=== PATIENT | male | born 1935 | race Caucasian/White ===

== ENCOUNTER 2017-09-01 09:24 | Day surgery (SDC) | payer OTHER ==
[~2017-09-01] VITALS: Ht 170.2 cm; Wt 79.5 kg
[~2017-09-01 09:24] MED LIST: ALL100T PO; ALLO100T PO; ASPI-498 OR; ASPI81TA27 PO; ATE50T PO; BENA10TA9 PO; BUS10T PO; BUSP10TA90 PO; CALC-386 PO; CHOL200021 PO; EZET10TA38 PO; MEMA28CA OR; MEMA28CA PO; METO25TA62 PO; MULT-777 OR; POT20T PO; POTA20TA53 PO; RISETAB3 PO; TAMS0.4C36 PO
[2017-09-01] MEDS ORDERED: IOHEXOL 350 MG/ML 100ML IJ ONE ×2 (11:34→11:46)
[2017-09-01] MEDS ORDERED: LIDOCAINE HCL 2 %PF INJ 10ML AMP IJ ONE (11:35)
[2017-09-01] MEDS ORDERED: ANGIOMAX 250 MG VIAL IV ONE (11:44)
[2017-09-01] MEDS ORDERED: fentaNYL CITRATE 100 MCG/2 ML VL ONE (11:44)
[2017-09-01] MEDS ORDERED: MIDAZOLAM HCL 1MG/1ML-2 ML VIAL ONE (11:45)
== END 2017-09-01 14:15 | disposition home or self-care (01) ==
LOC: CATH 09:24 → MERGE 09:24 → CATH 14:15
PROVIDERS: ATTEND Internal Medicine
DX: I25.10 Atherosclerotic heart disease of native coronary artery without angina pectoris (principal); R94.39 Abnormal result of other cardiovascular function study; E66.9 Obesity, unspecified; R97.20 Elevated prostate specific antigen [PSA]; I10 Essential (primary) hypertension; E78.5 Hyperlipidemia, unspecified; M81.0 Age-related osteoporosis without current pathological fracture; F03.90 Unspecified dementia, unspecified severity, without behavioral disturbance, psychotic disturbance, mood disturbance, and anxiety; M10.9 Gout, unspecified
CPT/HCPCS: 93458; C1760; C1894; J1644; J2250; J3010; J7030; Q9967; 99152

== ENCOUNTER → 2017-09-10 | Outpatient (CLI) | payer OTHER | END | disposition home or self-care (01) | LOC: XYW 10:06 | PROVIDERS: ATTEND Internal Medicine | DX: I72.9 Aneurysm of unspecified site (principal); I10 Essential (primary) hypertension; E11.9 Type 2 diabetes mellitus without complications; E78.00 Pure hypercholesterolemia, unspecified; E78.5 Hyperlipidemia, unspecified | CPT/HCPCS: 93926 ==

== ENCOUNTER → 2017-11-09 | Outpatient (CLI) | payer OTHER ==
[2017-11-09 08:13] LABS: Basophils # (auto) 0 uL; Basophils % (auto) 0.3 % (0.0-2.0); Eosinophils # (auto) 0.1 uL; Eosinophils % (auto) 1.6 % (0.0-7.0); Hematocrit 43.3 % (41.0-53.0); Hemoglobin 14.7 g/dL (13.5-17.5); Lymphocytes # (auto) 1.5 uL; Mean Corpuscular Hemoglobin 32.6 pg (28.0-32.0); Mean Corpuscular Volume 95.9 fL (80.0-100.0); Monocytes # (auto) 0.6 uL; Monocytes % (auto) 10.3 % (0.0-12.0); Neutrophils # (auto) 3.4 uL; Neutrophils % (auto) 60.8 % (37.0-80.0); Platelet Count (auto) 165 10^3/uL (140-450); Red Blood Cells 4.51 10^6/uL (4.5-5.90); Red Cell Distribution Width 14.2 % (11.8-14.3); White Blood Cell 5.6 10^3/uL (4.4-10.8)
[2017-11-09 09:22] LABS: Albumin 3.5 g/dL (3.4-5.0); BUN/Creatinine Ratio 16.3; Bilirubin, Total 0.6 mg/dL (0.2-1.0); Calcium 8.8 mg/dL (8.5-10.1); Potassium 3.7 mmol/L (3.5-5.1); Total Protein 6.1 g/dL (6.4-8.2)
== END | disposition home or self-care (01) ==
LOC: LAB 07:37
PROVIDERS: ATTEND Physician Assistant
DX: I10 Essential (primary) hypertension (principal); N40.1 Benign prostatic hyperplasia with lower urinary tract symptoms; E78.5 Hyperlipidemia, unspecified; I49.3 Ventricular premature depolarization; R53.83 Other fatigue; R97.20 Elevated prostate specific antigen [PSA]
CPT/HCPCS: 36415; 80053; 80061; 84153; 84154; 85025

== ENCOUNTER → 2018-04-29 | Outpatient (CLI) | payer OTHER ==
[~2018-04-29] MED LIST changes: -ALLO100T PO; -ASPI81TA27 PO; -ATE50T PO; -BUSP10TA90 PO; +CALC1TAB64 PO; -MEMA28CA PO; +MULT-775 OR; -POTA20TA53 PO; -RISETAB3 PO
[2018-04-30 07:05] LABS: RPR Non Reactive (Non Reactive)
== END | disposition home or self-care (01) ==
LOC: LAB 09:35
PROVIDERS: ATTEND Psychiatry & Neurology Neurology
DX: G30.0 Alzheimer's disease with early onset (principal); E11.9 Type 2 diabetes mellitus without complications
CPT/HCPCS: 36415; 82607; 83036; 84425; 84443; 86592

== ENCOUNTER → 2018-12-09 | Outpatient (CLI) | payer OTHER ==
[~2018-12-09] MED LIST changes: +EZET10TA24 PO; -EZET10TA38 PO
== END | disposition home or self-care (01) ==
LOC: LAB 07:50
PROVIDERS: ATTEND Urology
DX: R97.20 Elevated prostate specific antigen [PSA] (principal)
CPT/HCPCS: 84153; 84154

== ENCOUNTER → 2018-12-27 | Outpatient (CLI) | payer OTHER ==
[2018-12-27 09:16] LABS: Basophils # (auto) 0 uL; Basophils % (auto) 0.7 % (0.0-2.0); Eosinophils # (auto) 0.1 uL; Eosinophils % (auto) 1.7 % (0.0-7.0); Hematocrit 42.8 % (41.0-53.0); Hemoglobin 14.4 g/dL (13.5-17.5); Lymphocytes # (auto) 1.3 uL; Lymphocytes % (auto) 26.2 % (10.0-50.0); Mean Corpuscular Hemoglobin 32.6 pg (28.0-32.0); Mean Corpuscular Hgb Conc. 33.7 g/dL (32.0-36.0); Mean Corpuscular Volume 96.6 fL (80.0-100.0); Monocytes # (auto) 0.6 uL; Monocytes % (auto) 12.4 % (0.0-12.0); Platelet Count (auto) 143 10^3/uL (140-450); Red Blood Cells 4.43 10^6/uL (4.5-5.90); Red Cell Distribution Width 14.6 % (11.8-14.3); White Blood Cell 5.1 10^3/uL (4.4-10.8)
[2018-12-27 09:52] LABS: Potassium 3.7 mmol/L (3.5-5.1)
[2018-12-27 10:00] LABS: Albumin 3.4 g/dL (3.4-5.0); BUN/Creatinine Ratio 18.3; Bilirubin, Total 0.6 mg/dL (0.2-1.0); Calcium 8.8 mg/dL (8.5-10.1); Total Protein 6.1 g/dL (6.4-8.2)
== END | disposition home or self-care (01) ==
LOC: LAB 07:49
PROVIDERS: ATTEND Physician Assistant
DX: E78.5 Hyperlipidemia, unspecified (principal); N40.1 Benign prostatic hyperplasia with lower urinary tract symptoms; G30.1 Alzheimer's disease with late onset; I10 Essential (primary) hypertension
CPT/HCPCS: 36415; 80053; 80061; 85025

== ENCOUNTER → 2020-01-16 | Outpatient (CLI) | payer OTHER ==
[~2020-01-16] MED LIST changes: -METO25TA62 PO; +METO25TA93 PO
[2020-01-16 08:02] LABS: Basophils # (auto) 0 10 ^3/uL (0-0.2); Basophils % (auto) 0.4 % (0.0-2.0); Eosinophils # (auto) 0.1 10 ^3/uL (0-0.8); Eosinophils % (auto) 1.5 % (0.0-7.0); Hematocrit 42.1 % (41.0-53.0); Hemoglobin 13.9 g/dL (13.5-17.5); Lymphocytes # (auto) 1.5 10 ^3/uL (0.4-5.4); Lymphocytes % (auto) 29.4 % (10.0-50.0); Mean Corpuscular Hgb Conc. 32.9 g/dL (32.0-36.0); Mean Corpuscular Volume 97.3 fL (80.0-100.0); Monocytes # (auto) 0.5 10 ^3/uL (0-1.3); Neutrophils % (auto) 58.7 % (37.0-80.0); Platelet Count (auto) 152 10^3/uL (140-450); Red Blood Cells 4.33 10^6/uL (4.5-5.90); Red Cell Distribution Width 14.2 % (11.8-14.3); White Blood Cell 5.1 10^3/uL (4.4-10.8)
[2020-01-16 08:31] LABS: Albumin 3.3 g/dL (3.4-5.0); Potassium 3.8 mmol/L (3.5-5.1)
[2020-01-16 08:44] LABS: BUN/Creatinine Ratio 20.7; Bilirubin, Total 0.6 mg/dL (0.2-1.0); Calcium 8.5 mg/dL (8.5-10.1); Total Protein 5.9 g/dL (6.4-8.2)
== END | disposition home or self-care (01) ==
LOC: LAB 07:34
PROVIDERS: ATTEND Physician Assistant
DX: I10 Essential (primary) hypertension (principal); H81.10 Benign paroxysmal vertigo, unspecified ear; F02.80 Dementia in other diseases classified elsewhere, unspecified severity, without behavioral disturbance, psychotic disturbance, mood disturbance, and anxiety; R73.09 Other abnormal glucose; R97.20 Elevated prostate specific antigen [PSA]
CPT/HCPCS: 36415; 80053; 80061; 84153; 84154; 85025

== ENCOUNTER → 2020-12-19 | Outpatient (CLI) | payer OTHER | END | disposition home or self-care (01) | LOC: LAB 07:52 | PROVIDERS: ATTEND Urology | DX: R97.20 Elevated prostate specific antigen [PSA] (principal) | CPT/HCPCS: 84153; 84154 ==

== ENCOUNTER 2021-10-23 06:28 | Day surgery (SDC) | payer OTHER ==
[2021-10-21 11:51] LABS: Basophils # (auto) 0 10 ^3/uL (0-0.2); Basophils % (auto) 0.5 % (0.0-2.0); Eosinophils # (auto) 0.1 10 ^3/uL (0-0.8); Eosinophils % (auto) 0.9 % (0.0-7.0); Hematocrit 41.5 % (41.0-53.0); Hemoglobin 14.4 g/dL (13.5-17.5); Lymphocytes # (auto) 1.5 10 ^3/uL (0.4-5.4); Lymphocytes % (auto) 26.2 % (10.0-50.0); Mean Corpuscular Hemoglobin 33.1 pg (28.0-32.0); Mean Corpuscular Hgb Conc. 34.8 g/dL (32.0-36.0); Mean Corpuscular Volume 95.1 fL (80.0-100.0); Monocytes # (auto) 0.5 10 ^3/uL (0-1.3); Monocytes % (auto) 9.1 % (0.0-12.0); Neutrophils # (auto) 3.7 10 ^3/uL (1.6-8.6); Neutrophils % (auto) 63.3 % (37.0-80.0); Red Blood Cells 4.36 10^6/uL (4.5-5.90); Red Cell Distribution Width 14.1 % (11.8-14.3); White Blood Cell 5.9 10^3/uL (4.4-10.8)
[2021-10-21 11:57] LABS: Urine Bacteria NONE SEEN /hpf (None Seen); Urine Blood Negative /uL (Negative); Urine Specific Gravity 1.008 (1.001-1.035); Urine WBC <1 /hpf (0 - 3)
[2021-10-21 12:10] LABS: INR 1.05 (0.9-1.15); Partial Thromboplastin Time 27.4 sec (23.6-33.0)
[2021-10-21 12:35] LABS: Albumin 3.5 g/dL (3.4-5.0); Calcium 8.9 mg/dL (8.5-10.1); Potassium 4.3 mmol/L (3.5-5.1)
[2021-10-21 12:39] LABS: BUN/Creatinine Ratio 14.3; Bilirubin, Total 0.5 mg/dL (0.2-1.0); Total Protein 6.4 g/dL (6.4-8.2)
[~2021-10-23] VITALS: Ht 170.2 cm; Wt 74.8 kg
[~2021-10-23 06:28] MED LIST changes: +ALEN70TA74 PO; +BENA10TA15 PO; -BENA10TA9 PO; +BIMA0.01 OP; +CARB0.5D8 OP; +CICL8KIT4 EX; +LACT12LO26 EX
[2021-10-23] MEDS ORDERED: CIPROFLOXACIN 400MG/200ML 200 ML IV ONE (06:44)
[2021-10-23] MEDS ORDERED: GENTAMICIN SULF 80 MG/2 ML VIAL ONE (07:40)
[2021-10-23] MEDS ORDERED: FLEET ENEMA(ADULT) 135 ML PR ONE (08:00)
[2021-10-23] MEDS ORDERED: MIDAZOLAM HCL 2MG/2ML 2ml VIAL (1mg/ml) ONE (10:00)
[2021-10-23] MEDS ORDERED: fentaNYL CITRATE 0 ML ONE (10:00)
[2021-10-23] MEDS ORDERED: fentaNYL CITRATE 100 MCG/2 ML VL ONE (10:01)
[2021-10-23] MEDS ORDERED: ONDANSETRON HCL 4 MG/2 ML VIAL IV PRN (10:15)
[2021-10-23] MEDS ORDERED: PROPOFOL 10 MG/ML 20 ML IV ONE (10:42)
[2021-10-23 11:30] VITALS: BP 165/75
== END 2021-10-23 11:30 | disposition home or self-care (01) ==
LOC: SUR 06:28
PROVIDERS: ATTEND Urology
DX: R97.20 Elevated prostate specific antigen [PSA] (principal); N42.32 Atypical small acinar proliferation of prostate; I10 Essential (primary) hypertension; M10.9 Gout, unspecified; F03.90 Unspecified dementia, unspecified severity, without behavioral disturbance, psychotic disturbance, mood disturbance, and anxiety; E78.5 Hyperlipidemia, unspecified; Z98.890 Other specified postprocedural states; Z79.899 Other long term (current) drug therapy; Z90.89 Acquired absence of other organs; Z20.822 Contact with and (suspected) exposure to COVID-19
CPT/HCPCS: 36415; 55700; 76872; 80053; 81001; 85025; 85610; 85730; 88305; 88342; J0744; J1580; J2250; J2704; J3010; J7030; U0003

== ENCOUNTER 2021-10-26 08:23 | Emergency (ER) | payer OTHER ==
[~2021-10-26] VITALS: Ht 167.6 cm; Wt 73.5 kg
[2021-10-26 10:28] LABS: Urine Bacteria FEW /hpf (None Seen); Urine Blood 3+ /uL (Negative); Urine Specific Gravity 1.007 (1.001-1.035); Urine WBC 6 /hpf (0 - 3)
[2021-10-26 10:52] LABS: Basophils # (auto) 0 10 ^3/uL (0-0.2); Basophils % (auto) 0.4 % (0.0-2.0); Eosinophils # (auto) 0 10 ^3/uL (0-0.8); Eosinophils % (auto) 0.4 % (0.0-7.0); Hematocrit 41.2 % (41.0-53.0); Hemoglobin 14.1 g/dL (13.5-17.5); Lymphocytes # (auto) 1.3 10 ^3/uL (0.4-5.4); Lymphocytes % (auto) 23.7 % (10.0-50.0); Mean Corpuscular Hemoglobin 32.8 pg (28.0-32.0); Mean Corpuscular Hgb Conc. 34.2 g/dL (32.0-36.0); Mean Corpuscular Volume 95.9 fL (80.0-100.0); Monocytes # (auto) 0.4 10 ^3/uL (0-1.3); Monocytes % (auto) 7.9 % (0.0-12.0); Neutrophils # (auto) 3.7 10 ^3/uL (1.6-8.6); Neutrophils % (auto) 67.6 % (37.0-80.0); Red Cell Distribution Width 14.2 % (11.8-14.3); White Blood Cell 5.5 10^3/uL (4.4-10.8)
[2021-10-26] MEDS ORDERED: SULF400T11 PO (13:40)
[2021-10-26 13:53] VITALS: BP 187/97
== END 2021-10-26 13:55 | disposition home or self-care (01) ==
LOC: ER 08:23
DX: N39.0 Urinary tract infection, site not specified (principal); I10 Essential (primary) hypertension
CPT/HCPCS: 36415; 81001; 85025

== ENCOUNTER 2022-02-27 09:37 | Emergency (ER) | payer OTHER ==
[~2022-02-27 09:37] MED LIST changes: +SULF400T11 PO
[2022-02-27 11:04] LABS: Basophils # (auto) 0 10 ^3/uL (0-0.2); Basophils % (auto) 0.5 % (0.0-2.0); Eosinophils # (auto) 0 10 ^3/uL (0-0.8); Eosinophils % (auto) 0.2 % (0.0-7.0); Hematocrit 43.8 % (41.0-53.0); Hemoglobin 14.4 g/dL (13.5-17.5); Lymphocytes # (auto) 1.1 10 ^3/uL (0.4-5.4); Lymphocytes % (auto) 11.9 % (10.0-50.0); Mean Corpuscular Hemoglobin 31.7 pg (28.0-32.0); Mean Corpuscular Volume 96.1 fL (80.0-100.0); Monocytes # (auto) 0.6 10 ^3/uL (0-1.3); Monocytes % (auto) 6.3 % (0.0-12.0); Neutrophils # (auto) 7.6 10 ^3/uL (1.6-8.6); Neutrophils % (auto) 81.1 % (37.0-80.0); Nucleated Red Blood Cells % 0.1 %; Red Blood Cells 4.55 10^6/uL (4.5-5.90); Red Cell Distribution Width 13.9 % (11.8-14.3); White Blood Cell 9.4 10^3/uL (4.4-10.8)
[2022-02-27 11:20] LABS: Albumin 3.8 g/dL (3.4-5.0); Calcium 9.1 mg/dL (8.5-10.1); Potassium 4.6 mmol/L (3.5-5.1)
[2022-02-27 11:23] LABS: BUN/Creatinine Ratio 15.9; Bilirubin, Total 0.9 mg/dL (0.2-1.0); Total Protein 6.4 g/dL (6.4-8.2)
[2022-02-27] MEDS ORDERED: FLUORESCEIN SOD OPTH TEST STRIP RIGHTEYE ONE (15:45)
[2022-02-27] MEDS ORDERED: TETRACAINE HCL 0.5% OPTH(EYE) SOLN 4ML RIGHTEYE ONE (15:45)
[2022-02-27] MEDS ORDERED: CIP03OS RIGHTEYE (19:28)
[2022-02-27 19:45] VITALS: BP 130/83
== END 2022-02-27 19:19 | disposition home or self-care (01) ==
LOC: ER 09:37
DX: S05.01XA Injury of conjunctiva and corneal abrasion without foreign body, right eye, initial encounter (principal); S00.83XA Contusion of other part of head, initial encounter; H11.31 Conjunctival hemorrhage, right eye; I10 Essential (primary) hypertension; Z79.82 Long term (current) use of aspirin; Z79.899 Other long term (current) drug therapy; W19.XXXA Unspecified fall, initial encounter; Y93.89 Activity, other specified; Y92.89 Other specified places as the place of occurrence of the external cause; Y99.8 Other external cause status
CPT/HCPCS: 36415; 70450; 70486; 72125; 73030; 80053; 84484; 85025; 93005

== ENCOUNTER → 2022-04-28 | Outpatient (CLI) | payer OTHER ==
[~2022-04-28] MED LIST changes: +CIP03OS RIGHTEYE
== END | disposition home or self-care (01) ==
LOC: LAB 09:11
PROVIDERS: ATTEND Urology
DX: R97.20 Elevated prostate specific antigen [PSA] (principal); N40.1 Benign prostatic hyperplasia with lower urinary tract symptoms
CPT/HCPCS: 84153

== ENCOUNTER → 2022-05-21 | Outpatient (CLI) | payer OTHER ==
[2022-05-21 08:08] LABS: Basophils # (auto) 0 10 ^3/uL (0-0.2); Basophils % (auto) 0.6 % (0.0-2.0); Eosinophils # (auto) 0.1 10 ^3/uL (0-0.8); Eosinophils % (auto) 2.4 % (0.0-7.0); Hematocrit 40.6 % (41.0-53.0); Hemoglobin 13.8 g/dL (13.5-17.5); Lymphocytes # (auto) 1.5 10 ^3/uL (0.4-5.4); Lymphocytes % (auto) 26.7 % (10.0-50.0); Mean Corpuscular Hemoglobin 32.3 pg (28.0-32.0); Mean Corpuscular Volume 95.1 fL (80.0-100.0); Monocytes # (auto) 0.5 10 ^3/uL (0-1.3); Monocytes % (auto) 9.3 % (0.0-12.0); Neutrophils # (auto) 3.5 10 ^3/uL (1.6-8.6); Nucleated Red Blood Cells % 0.2 %; Red Blood Cells 4.27 10^6/uL (4.5-5.90); Red Cell Distribution Width 14.4 % (11.8-14.3); White Blood Cell 5.7 10^3/uL (4.4-10.8)
[2022-05-21 08:49] LABS: Albumin 3.4 g/dL (3.4-5.0); BUN/Creatinine Ratio 18.8; Calcium 8.9 mg/dL (8.5-10.1)
[2022-05-21 08:54] LABS: Bilirubin, Total 0.4 mg/dL (0.2-1.0)
[2022-05-21 09:18] LABS: Free T4 (Free Thyroxine) 0.97 ng/dL (0.89-1.76)
[2022-05-21 09:19] LABS: Prostate Specific Antigen 12.21 ng/mL (0.0-4.0)
== END | disposition home or self-care (01) ==
LOC: LAB 07:48
PROVIDERS: ATTEND Nurse Practitioner Family
DX: I10 Essential (primary) hypertension (principal); R97.20 Elevated prostate specific antigen [PSA]; R73.03 Prediabetes; Z00.00 Encounter for general adult medical examination without abnormal findings
CPT/HCPCS: 36415; 80053; 80061; 82043; 83036; 84153; 84439; 84443; 85025

== ENCOUNTER → 2023-05-27 | Outpatient (CLI) | payer OTHER ==
[~2023-05-27] MED LIST changes: +BENA-19 PO; -BENA10TA15 PO
[2023-05-27 08:48] LABS: Basophils # (auto) 0 10 ^3/uL (0-0.2); Basophils % (auto) 0.4 % (0.0-2.0); Eosinophils # (auto) 0.1 10 ^3/uL (0-0.8); Eosinophils % (auto) 1.9 % (0.0-7.0); Hematocrit 42.7 % (41.0-53.0); Hemoglobin 14.1 g/dL (13.5-17.5); Lymphocytes # (auto) 1.4 10 ^3/uL (0.4-5.4); Lymphocytes % (auto) 26.8 % (10.0-50.0); Mean Corpuscular Hemoglobin 31.8 pg (28.0-32.0); Mean Corpuscular Volume 96.6 fL (80.0-100.0); Monocytes # (auto) 0.6 10 ^3/uL (0-1.3); Monocytes % (auto) 10.8 % (0.0-12.0); Neutrophils # (auto) 3.2 10 ^3/uL (1.6-8.6); Neutrophils % (auto) 60.1 % (37.0-80.0); Red Blood Cells 4.42 10^6/uL (4.5-5.90); Red Cell Distribution Width 14.3 % (11.8-14.3); White Blood Cell 5.3 10^3/uL (4.4-10.8)
[2023-05-27 09:15] LABS: Alanine Aminotransferase 24 U/L (7-40); Alkaline Phosphatase 77 U/L (46-116); Anion Gap 5 (5-15); Aspartate Aminotransferase 20 U/L (13-40); Blood Urea Nitrogen 10 mg/dL (9-23); Calcium 9.3 mg/dL (8.5-10.1); Carbon Dioxide 28 mmol/L (20-30); Chloride 109 mmol/L (98-107); Cholesterol 103 mg/dL (< 200); Glucose 102 mg/dL (74-106); HDL Cholesterol 55 mg/dL (40-59); LDL Cholesterol 37 mg/dL (< 100); Potassium 4.2 mmol/L (3.5-5.1); Sodium 142 mmol/L (136-145); Triglycerides 55 mg/dL (< 150)
[2023-05-27 09:16] LABS: Bilirubin, Total 0.9 mg/dL (0.2-1.0); Total Protein 5.8 g/dL (5.7-8.2)
[2023-05-27 10:25] LABS: Prostate Specific Antigen 13.3 ng/mL (0.0-4.0)
[2023-05-27 10:29] LABS: Free T4 (Free Thyroxine) 1.01 ng/dL (0.89-1.76)
== END | disposition home or self-care (01) ==
LOC: LAB 08:08
PROVIDERS: ATTEND Nurse Practitioner Family
DX: I10 Essential (primary) hypertension (principal); E78.5 Hyperlipidemia, unspecified; R73.03 Prediabetes; R97.20 Elevated prostate specific antigen [PSA]
CPT/HCPCS: 36415; 80053; 80061; 82043; 83036; 84153; 84439; 84443; 85025

== ENCOUNTER → 2024-06-07 | Outpatient (CLI) | payer OTHER ==
[~2024-06-07] MED LIST changes: -BENA-19 PO; +BENA10TA90 PO; -TAMS0.4C36 PO; +TAMS0.4C39 PO
[2024-06-07 09:07] LABS: Alanine Aminotransferase 20 U/L (7-40); Alkaline Phosphatase 74 U/L (46-116); Anion Gap 5 (5-15); Calcium 9.9 mg/dL (8.7-10.4); Carbon Dioxide 30 mmol/L (20-31); Potassium 4.5 mmol/L (3.5-5.1); Sodium 143 mmol/L (136-145)
[2024-06-07 09:08] LABS: BUN/Creatinine Ratio 15.3 (10.0-20.0); Basophils # (auto) 0 10 ^3/uL (0-0.2); Basophils % (auto) 0.5 % (0.0-2.0); Blood Urea Nitrogen 13 mg/dL (9-23); Eosinophils # (auto) 0.1 10 ^3/uL (0-0.8); Eosinophils % (auto) 1.6 % (0.0-7.0); Glucose 103 mg/dL (74-106); Hematocrit 40.2 % (41.0-53.0); Hemoglobin 13.4 g/dL (13.5-17.5); Lymphocytes # (auto) 1.3 10 ^3/uL (0.4-5.4); Mean Corpuscular Hemoglobin 33.4 pg (28.0-32.0); Mean Corpuscular Hgb Conc. 33.3 g/dL (32.0-36.0); Mean Corpuscular Volume 100.2 fL (80.0-100.0); Monocytes # (auto) 0.6 10 ^3/uL (0-1.3); Monocytes % (auto) 11.5 % (0.0-12.0); Neutrophils # (auto) 3.2 10 ^3/uL (1.6-8.6); Neutrophils % (auto) 61.4 % (37.0-80.0); Nucleated Red Blood Cells % 0.2 %; Platelet Count (auto) 178 10^3/uL (140-450); Red Blood Cells 4.02 10^6/uL (4.5-5.90); Red Cell Distribution Width 15.5 % (11.8-14.3); Triglycerides 74 mg/dL (< 150); White Blood Cell 5.3 10^3/uL (4.4-10.8)
[2024-06-07 09:09] LABS: Aspartate Aminotransferase 28 U/L (13-40); LDL Cholesterol 45 mg/dL (< 100)
[2024-06-07 09:10] LABS: Bilirubin, Total 0.8 mg/dL (0.2-1.0); Cholesterol 113 mg/dL (< 200); HDL Cholesterol 60 mg/dL (40-59); Total Protein 5.9 g/dL (5.7-8.2)
[2024-06-07 09:39] LABS: Chloride 108 mmol/L (98-107)
== END | disposition home or self-care (01) ==
LOC: LAB 08:02
PROVIDERS: ATTEND Nurse Practitioner Family
DX: I10 Essential (primary) hypertension (principal); F02.80 Dementia in other diseases classified elsewhere, unspecified severity, without behavioral disturbance, psychotic disturbance, mood disturbance, and anxiety
CPT/HCPCS: 36415; 80053; 80061; 84443; 85025

== ENCOUNTER 2024-06-24 09:14 | Emergency (ER) | payer OTHER ==
[~2024-06-24] VITALS: Ht 167.6 cm; Wt 82.0 kg
[2024-06-24 10:11] VITALS: PULSE 64; RESP 16; O2SAT 98
--- NOTE | 2024-06-24 10:36 | ED.PDOC ---
Musculoskeletal HPI Comments 89 year old male RUI presents to the ED with chief complaint of shoulder and hip pain s/p fall. Patient reports that he had fell earlier this morning as well as 2 days ago onto his right side, injuring his right shoulder and hip. Patient relays that he had back pain earlier, but it has since resolved. Patient states the pain is mild. Patient denies any LOC, head injury, neck injury, dizziness, or headache. Chief Complaint: Fall Injury Time Seen by MD: 10:33 Reviewed Notes: Nurses Notes, Procurement Assistant Notes, Medications, Allergies Allergies: Coded Allergies: NO KNOWN ALLERGIES (Unverified , 11/29/17) Home Meds Active Scripts Ciprofloxacin Hcl (Ophth) (Cipro Opthalmic Soln) [address], 2 DROP RIGHTEYE Q6HR for 5 Days, #5 ML Prov:BAHMAN LOPEZ MD 02/27/22 Sulfamethoxazole-Trimethoprim (Bactrim) 1 Tab Tab, 1 TAB PO BID for 7 Days, #14 MG Prov:BRYANT ANDERSON MD 10/26/21 Reported Medications Carboxymethylcellulose-Glyceri (REFRESH OPTIVE) 1 Ml Korey, 1 ML OP, DROP 10/21/21 Ciclopirox (CICLOPIROX TREATMENT) 8 % Kit, 8 % EX, KIT 10/21/21 Lactic Acid (Ammonium Lactate) 12 % Lot, 12 % EX, BOTTLE 10/21/21 Alendronate Sodium (Alendronate Sodium) 70 Mg Tab, 70 MG PO Q7D, TAB 10/21/21 Bimatoprost (Lumigan) 0.01 % Camille, 0.01 % OP, ML 10/21/21 Multiple Vitamins W/ Minerals (OCUVITE EYE HEALTH FORMUL) Health Cap, 1 CAP OR DAILY, CAP 11/29/17 Calcium Carbonate-Cholecalcife (Calcium 500 +D3 500-600 mg-Unit) 1 Tab Tab, 1 TAB PO DAILY, TAB 11/29/17 Tamsulosin Hcl (Tamsulosin Hcl) 0.4 Mg Cap, 0.4 MG PO QPM for 30 Days, MG 08/27/17 Benazepril Hcl (Benazepril Hcl) 10 Mg Tab, 10 MG PO DAILY for 30 Days, MG 08/27/17 Metoprolol Succinate (Metoprolol Succinate Er) 25 Mg Tab, 25 MG PO DAILY for 30 Days, MG 4/6/18 Aspirin (ASPIRIN 81) 81 Mg Tab, 81 MG OR, TAB 02/19/15 Cholecalciferol (D3) 2,000 Unit Tab, 2000 UNIT PO, TAB 02/19/15 Calcium & Phosphorus W/ Vitami (CALCIUM) Tab, 600 MG PO DAILY, TAB 02/19/15 Multiple Vitamins W/ Minerals (MULTI COMPLETE) Complete Cap, 1 OR, CAP 02/19/15 Memantine Hydrochloride (NAMENDA XR) 28 Mg Cap, 28 MG OR DAILY, CAP 02/19/15 Allopurinol (ZYLOPRIM TABLET) 100 Mg Tb, 1 TAB PO BID, #30 TAB 5 Refills 02/19/15 Buspirone Hcl (Buspar) 10 Mg Tab, 10 MG PO TID, TAB 02/19/15 Ezetimibe-Simvastatin (Vytorin) 1 Tab Tab, 1 TAB PO DAILY, #30 TAB 5 Refills 02/19/15 Potassium Chloride (KLOR-CON TABLET) 20 Meq Tb, 1 TAB PO DAILY, #90 TAB 1 Refill 02/19/15 Information Source: Patient, Emergency Med Personnel, Spouse Mode of Arrival: EMS Location: Right Extremity Location: Hip, Shoulder Timing: Days Prehospital treatment: None Severity: Moderate Able to Move Extremity: Yes Bear Weight: Fully Pain: Mild Mechanism: Spontaneous Circumstances: Fall Onset of Symptoms: After Trauma Symptoms: Pain DVT Risk Factors: NONE Last Tetanus: Unknown Past Medical History PAST MEDICAL HISTORY: Dementia, Gout, High Lipids, HTN Past Medical History (Other): BPH Surgical History: Denies all surgeries Family History Family History: Reviewed,noncontributory to illness Social History Smoker: Non-Smoker Alcohol: Denies ETOH Use Drugs: Denies Drug Use Lives In: Home Constitutional: denies: chills, diaphoresis, fatigue, fever, malaise, sweats, weakness, others EENTM: denies: blurred vision, double vision, ear bleeding, ear discharge, ear drainage, ear pain, ear ringing, eye pain, eye redness, hearing loss, mouth pain, mouth swelling, nasal discharge, nose bleeding, nose congestion, nose pain, photophobia, tearing, throat pain, throat swelling, voice changes, others Respiratory: denies: cough, hemoptysis, orthopnea, SOB at rest, shortness of breath, SOB with excertion, stridor, wheezing, others Cardiovascular: denies: chest pain, dizzy spells, diaphoresis, Dyspnea on exertion, edema, irregular heart beat, left arm pain, lightheadedness, palpitations, PND, syncope, others Gastrointestinal: denies: abdomen distended, abdominal pain, blood streaked bowels, constipated, diarrhea, dysphagia, difficulty swallowing, hematemesis, melena, nausea, poor appetite, poor fluid intake, rectal bleeding, rectal pain, vomiting, others Genitourinary: denies: burning, dysuria, flank pain, frequency, hematuria, incontinence, penile discharge, penile sore, pain, testicle pain, testicle swell ing, urgency, others Neurological: denies: dizziness, fainting, headache, left sided numbness, left sided weakness, numbness, paresthesia, pre-existing deficit, right sided numbness, right sided weakness, seizure, speech problems, tingling, tremors, weakness, others Musculoskeletal: reports: others (Rt shoulder and hip pain); denies: back pain, gout, joint pain, joint swelling, muscle pain, muscle stiffness, neck pain Integumetry: denies: bruises, change in color, change in hair/nails, dryness, laceration, lesions, lumps, rash, wounds, others Allergic/Immunocompromised: denies: Difficulty Healing, Frequent Infections, Hives, Itching, others Hematologic/Lymphatic: denies: anemia, blood clots, easy bleeding, easy bruising, swollen glands, others Endocrine: denies: excessive hunger, excessive sweating, excessive thirst, excessive urination, flushing, intolerance to cold, intolerance to heat, unexplained weight gain, unexplained weight loss, others Psychiatric: denies: anxiety, bipolar disorder, depression, hopeless, panic disorder, schizophrenia, sleepless, suicidal, others All Other Systems: Reviewed and Negative Physical Exam General Appearance: No Apparent Distress, Normal HEENT: Normal ENT Inspection, PERRL/EOMI Neck: Full Range of Motion, Non-Tender, Normal, Normal Inspection Respiratory: Chest Non-Tender, Lungs Clear, No Accessory Muscle Use, No Respiratory Distress, Normal Breath Sounds Cardiovascular: No Edema, No JVD, No Murmur, No Gallop, Normal Peripheral Pulses, Regular Rate/Rhythm Breast Exam: Deferred Gastrointestinal: No Organomegaly, Non Tender, No Pulsatile Mass, Normal Bowel Sounds, Soft Genitalia: Deferred Pelvic: Deferred Rectal: Deferred Extremities: No calf tenderness, Normal capillary refill, Normal inspection, Normal range of motion, Non-tender, No pedal edema Musculoskeletal : Location: Right Extremity Location: Hip, Shoulder Apperance: Normal, Limited ROM, Tenderness: Mild, Tenderness: Moderate Neurologic: Alert, leisure studies professor II-XII nml as Tested, No Motor Deficits, Normal Affect, Normal Mood, No Sensory Deficits Cerebellar Function: NOT DONE Reflexes: NOT DONE Skin: Dry, Normal Color, Warm Peripheral Pulses: 1+ carotid (R), 1+ carotid (L) Lymphatic: No Adenopathy Was a procedure done? Was a procedure done?: No Differential Diagnosis EXT Differential Diagnosis: Fracture, Sprain, DJD, Contusion, Strain, Arthritis, Bursitis X-Ray, Labs, Meds, VS Vital Signs Date Time Temp Pulse Resp B/P (MAP) Pulse Ox O2 Delivery O2 Flow Rate FiO2 06/24/24 10:11 64 16 98 Room Air* 0 21 06/24/24 10:08 62 16 158/76 (103) 98 06/24/24 10:08 62 18 99 Room Air 06/24/24 09:45 64 06/24/24 09:23 97.7 67 17 153/81 (105) 97 Rt Shoulder XR: FINDINGS: BONES/JOINTS: Unremarkable. No acute fracture. No dislocation. SOFT TISSUES: Unremarkable. OTHER FINDINGS: . None. . IMPRESSION: No acute fracture. Rt Hip XR: FINDINGS: A zipper and metallic buttons overlies the pelvis and partially obscures visualization. No acute fracture or dislocation. Moderate joint space narrowing in the hips bilaterally with associated subchondral sclerosis. Mild sclerosis adjacent to the sacroiliac joints bilaterally. Calcifications in the pelvis are most likely phleboliths. Adjacent soft tissues are unremarkable. IMPRESSION: 1. No evidence of acute bony abnormality. 2. Arthritic changes as described above. 3. Limited examination due to overlying metallic densities. 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 shows DJD Right shoulder x-ray negative examination to the back does not elicit any tenderness Patient will be discharged home to follow up with his PCP Time of 1ST Reevaluation: 11:33 Reevaluation 1ST: Improved Time of 2ND Reevaluation: 11:48 Reevaluation 2ND: Improved Consultation: PCP Patient Education/Counseling: Diagnosis, Treatment, Prognosis, Need For Follow Up Family Education/Counseling: Diagnosis, Treatment, Prognosis, Need For Follow Up, Other (Follows at bedside) Departure 1 Departure Time of Disposition: 11:49 Impression: Primary Impression: Fall at home Qualified Codes: W19.XXXA - Unspecified fall, initial encounter; Y92.009 - Unspecified place in unspecified non-institutional (private) residence as the place of occurrence of the external cause Additional Impressions: Contusion of right shoulder Qualified Codes: S40.011A - Contusion of right shoulder, initial encounter Contusion of right hip Qualified Codes: S70.01XA - Contusion of right hip, initial encounter Disposition: HOME / SELF CARE / HOMELESS Condition: Fair Additional Instructions: Local heat and follow up with your PCP e-Prescriptions Naproxen Sodium (ALEVE ARTHRITIS) 220 Mg Tab 220 MG PO BID for 5 Days, #10 TAB Prov: JOANNE MULTANI MD 06/24/24 Discharged With: Self Critical Care Note Critical Care Time?: No Stability Stability form required: No Heart Score Heart Score: Heart Score Response (Comments) Value History N/A 0 EKG N/A 0 Age >65 2 Risk Factors 1 or 2 risk factors 1 Troponin N/A 0 Total 3 I personally scribed for JOANNE MULTANI MD ([email or web address]) on 06/24/24 at 10:36. Electronically submitted by Santana Pelaez ([email or web address]). I personally scribed for JOANNE MULTANI MD ([email or web address]) on 06/24/24 at 11:35. Electronically submitted by Santana Pelaez ([email or web address]). JOANNE MULTANI MD Jun 24, 2024 10:36
--- NOTE | 2024-06-24 11:06 | DVH ---
EXAM: XR Right Shoulder Complete, 2 or More Views CLINICAL INDICATION: Fall TECHNIQUE: Two or more views of the right shoulder. COMPARISON: R SHOULDER COMPLETE XRAY on DOS: 02/27/22 FINDINGS: BONES/JOINTS: Unremarkable. No acute fracture. No dislocation. SOFT TISSUES: Unremarkable. OTHER FINDINGS: . None. . IMPRESSION: No acute fracture.
--- NOTE | 2024-06-24 11:09 | DVH ---
CLINICAL INFORMATION: 89 years old, Male; fall injury. TECHNIQUE: 3 views of the pelvis and right hip were obtained. COMPARISON: None FINDINGS: A zipper and metallic buttons overlies the pelvis and partially obscures visualization. No acute fracture or dislocation. Moderate joint space narrowing in the hips bilaterally with associated subchondral sclerosis. Mild sclerosis adjacent to the sacroiliac joints bilaterally. Calcifications in the pelvis are most likely phleboliths. Adjacent soft tissues are unremarkable. IMPRESSION: 1. No evidence of acute bony abnormality. 2. Arthritic changes as described above. 3. Limited examination due to overlying metallic densities.
[2024-06-24] MEDS ORDERED: NAPR-759 PO (11:51)
[2024-06-24 11:57] VITALS: BP 135/85; PULSE 61; RESP 16; TEMP 97.6; O2SAT 98
--- NOTE | 2024-06-24 15:59 | ECG ---
[facility] Test Date: 2024-06-24 Test Time: 09:43:16 Pat Name: HERMAN ROBERTS Department: ED Room: Gender: M Bucket Chucker: TRUNG : 1935 Requested By: EMERGENCY EMERGENCY Order Number: [id number] Reading MD: Measurements Intervals [place] Rate: 64 P: 41 IN: 184 QRS: -6 QRSD: 97 T: 40 QT: 428 QTc: 442 Interpretive Statements Sinus rhythm Low voltage, precordial leads Probable anteroseptal infarct, old Baseline wander in lead(s) II,III,aVL,aVF Please click the below link to view image of tracing.
== END 2024-06-24 18:02 | disposition home or self-care (01) ==
LOC: EDBD 09:14 → ER 09:14
DX: S40.011A Contusion of right shoulder, initial encounter (principal); S70.01XA Contusion of right hip, initial encounter; E78.5 Hyperlipidemia, unspecified; I10 Essential (primary) hypertension; Z79.899 Other long term (current) drug therapy; Z79.84 Long term (current) use of oral hypoglycemic drugs; W18.39XA Other fall on same level, initial encounter; Y93.89 Activity, other specified; Y92.89 Other specified places as the place of occurrence of the external cause; Y99.8 Other external cause status
CPT/HCPCS: 73030; 73502; 93005

== ENCOUNTER 2024-10-17 21:15 | Emergency (ER) | payer OTHER ==
[~2024-10-17] VITALS: Ht 172.7 cm; Wt 77.1 kg
[~2024-10-17 21:15] MED LIST changes: +NAPR-759 PO
[2024-10-17 21:58] LABS: Basophils # (auto) 0 10 ^3/uL (0-0.2); Basophils % (auto) 0.5 % (0.0-2.0); Eosinophils # (auto) 0.1 10 ^3/uL (0-0.8); Eosinophils % (auto) 1.3 % (0.0-7.0); Hematocrit 40.4 % (41.0-53.0); Hemoglobin 13.6 g/dL (13.5-17.5); Lymphocytes # (auto) 1.6 10 ^3/uL (0.4-5.4); Lymphocytes % (auto) 22.6 % (10.0-50.0); Mean Corpuscular Hemoglobin 31.7 pg (28.0-32.0); Mean Corpuscular Hgb Conc. 33.7 g/dL (32.0-36.0); Mean Corpuscular Volume 94.1 fL (80.0-100.0); Monocytes # (auto) 0.9 10 ^3/uL (0-1.3); Monocytes % (auto) 12.2 % (0.0-12.0); Neutrophils # (auto) 4.4 10 ^3/uL (1.6-8.6); Neutrophils % (auto) 63.4 % (37.0-80.0); Platelet Count (auto) 167 10^3/uL (140-450); Red Blood Cells 4.29 10^6/uL (4.5-5.90); Red Cell Distribution Width 15.1 % (11.8-14.3)
[2024-10-17 22:07] LABS: Calcium 9.7 mg/dL (8.7-10.4); Carbon Dioxide 31 mmol/L (20-31)
[2024-10-17 22:12] LABS: BUN/Creatinine Ratio 14.6 (10.0-20.0); Blood Urea Nitrogen 12 mg/dL (9-23)
[2024-10-17 22:14] LABS: Potassium 4.3 mmol/L (3.5-5.1)
[2024-10-17 22:18] LABS: Chloride 111 mmol/L (98-107); Glucose 112 mg/dL (74-106)
[2024-10-17 22:22] LABS: Anion Gap 3 (5-15); Sodium 145 mmol/L (136-145)
--- NOTE | 2024-10-17 22:24 | ED.PDOC ---
History of Present Illness HPI Comments 89 y/o M, with a history of dementia, is BIBA from home with c/o left hip pain s/p unwitnessed mechanical trip and fall, this afternoon. Per EMS, patient's spouse called, endorsing on patient needing to be evaluated after injuring himself. Unknown head injury or LOC. Patient is stated have been found on scene at [facility], pleasantly confused and and acting appropriate for his demented state, with no further signs of trauma and PERRL. Vitals were stable and within normal limits, with a blood glucose of 111. No further injuries, pain, weakness, numbness, dizziness, headache, or further associated symptoms reported. Chief Complaint: Fall Injury Time Seen by MD: 21:30 Reviewed Notes: Nurses Notes, Dashboard Developer Notes, Medications, Allergies Allergies: Coded Allergies: NO KNOWN ALLERGIES (Unverified , 11/29/17) Home Meds Active Scripts Naproxen Sodium (ALEVE ARTHRITIS) 220 Mg Tab, 220 MG PO BID for 5 Days, #10 TAB Prov:JOANNE MULTANI MD 06/24/24 Ciprofloxacin Hcl (Ophth) (Cipro Opthalmic Soln) [address], 2 DROP RIGHTEYE Q6HR for 5 Days, #5 ML Prov:BAHMAN LOPEZ MD 02/27/22 Sulfamethoxazole-Trimethoprim (Bactrim) 1 Tab Tab, 1 TAB PO BID for 7 Days, #14 MG Prov:BRYANT ANDERSON MD 10/26/21 Reported Medications Carboxymethylcellulose-Glyceri (REFRESH OPTIVE) 1 Ml Korey, 1 ML OP, DROP 10/21/21 Ciclopirox (CICLOPIROX TREATMENT) 8 % Kit, 8 % EX, KIT 10/21/21 Lactic Acid (Ammonium Lactate) 12 % Lot, 12 % EX, BOTTLE 10/21/21 Alendronate Sodium (Alendronate Sodium) 70 Mg Tab, 70 MG PO Q7D, TAB 10/21/21 Bimatoprost (Lumigan) 0.01 % Camille, 0.01 % OP, ML 10/21/21 Multiple Vitamins W/ Minerals (OCUVITE EYE HEALTH FORMUL) Health Cap, 1 CAP OR DAILY, CAP 11/29/17 Calcium Carbonate-Cholecalcife (Calcium 500 +D3 500-600 mg-Unit) 1 Tab Tab, 1 TAB PO DAILY, TAB 11/29/17 Tamsulosin Hcl (Tamsulosin Hcl) 0.4 Mg Cap, 0.4 MG PO QPM for 30 Days, MG 08/27/17 Benazepril Hcl (Benazepril Hcl) 10 Mg Tab, 10 MG PO DAILY for 30 Days, MG 08/27/17 Metoprolol Succinate (Metoprolol Succinate Er) 25 Mg Tab, 25 MG PO DAILY for 30 Days, MG 08/27/17 Aspirin (ASPIRIN 81) 81 Mg Tab, 81 MG OR, TAB 02/19/15 Cholecalciferol (D3) 2,000 Unit Tab, 2000 UNIT PO, TAB 02/19/15 Calcium & Phosphorus W/ Vitami (CALCIUM) Tab, 600 MG PO DAILY, TAB 02/19/15 Multiple Vitamins W/ Minerals (MULTI COMPLETE) Complete Cap, 1 OR, CAP 02/19/15 Memantine Hydrochloride (NAMENDA XR) 28 Mg Cap, 28 MG OR DAILY, CAP 02/19/15 Allopurinol (ZYLOPRIM TABLET) 100 Mg Tb, 1 TAB PO BID, #30 TAB 5 Refills 02/19/15 Buspirone Hcl (Buspar) 10 Mg Tab, 10 MG PO TID, TAB 02/19/15 Ezetimibe-Simvastatin (Vytorin) 1 Tab Tab, 1 TAB PO DAILY, #30 TAB 5 Refills 02/19/15 Potassium Chloride (KLOR-CON TABLET) 20 Meq Tb, 1 TAB PO DAILY, #90 TAB 1 Refill 02/19/15 Information Source: Emergency Med Personnel Mode of Arrival: EMS Severity: Moderate Timing: Hours Duration: Since onset Prehospital treatment: 12 Lead EKG, Accucheck, Livestock Yard Supervisor Past Medical History PAST MEDICAL HISTORY: Dementia, Gout, High Lipids, HTN Surgical History: Denies all surgeries Family History Family History: Reviewed,noncontributory to illness Social History Smoker: Non-Smoker Alcohol: Denies ETOH Use Drugs: Denies Drug Use Lives In: Home All Other Systems: Reviewed and Negative (Comprehensive systems review obtained and negative except for what is stated in the HPI.) Physical Exam General Appearance: No Apparent Distress, Normal HEENT: Normal ENT Inspection, Pharynx Normal, TMs Normal Neck: Full Range of Motion, Non-Tender, Normal, Normal Inspection Respiratory: Chest Non-Tender, Lungs Clear, No Accessory Muscle Use, No Respiratory Distress, Normal Breath Sounds Cardiovascular: No Edema, No JVD, No Murmur, No Gallop, Normal Peripheral Pulses, Regular Rate/Rhythm Breast Exam: Deferred Gastrointestinal: No Organomegaly, Non Tender, No Pulsatile Mass, Normal Bowel Sounds, Soft Genitalia: Deferred Pelvic: Deferred Rectal: Deferred Extremities: No calf tenderness, Normal capillary refill, Normal inspection, Normal range of motion, Non-tender, No pedal edema Musculoskeletal : Location: Left Extremity Location: Hip Apperance: Normal, Tenderness Neurologic: Alert, information services consultant II-XII nml as Tested, No Motor Deficits, Normal Affect, Normal Mood, No Sensory Deficits Cerebellar Function: Normal Reflexes: Normal Skin: Dry, Normal Color, Warm Lymphatic: No Adenopathy Was a procedure done? Was a procedure done?: No Differential Dx Considerations may include: fractures, dislocations, contusions, bruising, among others X-Ray, Labs, Meds, VS Vital Signs Date Time Temp Pulse Resp B/P (MAP) Pulse Ox O2 Delivery O2 Flow Rate FiO2 10/17/24 21:25 98.3 91 20 155/98 (117) 98 98.3 Lab Test 10/17/24 22:37 10/17/24 21:40 Range/Units Troponin I High Sensitivity 11 9 </=54 ng/L White Blood Count 7.0 4.4-10.8 10^3/uL Red Blood Count 4.29 L 4.5-5.90 10^6/uL Hemoglobin 13.6 13.5-17.5 g/dL Hematocrit 40.4 L 41.0-53.0 % Mean Corpuscular Volume 94.1 80.0-100.0 fL Mean Corpuscular Hemoglobin 31.7 28.0-32.0 pg Mean Corpuscular Hemoglobin Concent 33.7 32.0-36.0 g/dL Red Cell Distribution Width 15.1 H 11.8-14.3 % Platelet Count 167 140-450 10^3/uL Mean Platelet Volume 8.2 6.9-10.8 fL Neutrophils (%) (Auto) 63.4 37.0-80.0 % Lymphocytes (%) (Auto) 22.6 10.0-50.0 % Monocytes (%) (Auto) 12.2 H 0.0-12.0 % Eosinophils (%) (Auto) 1.3 0.0-7.0 % Basophils (%) (Auto) 0.5 0.0-2.0 % Neutrophils # (Auto) 4.4 1.6-8.6 10 ^3/uL Lymphocytes # (Auto) 1.6 0.4-5.4 10 ^3/uL Monocytes # (Auto) 0.9 0-1.3 10 ^3/uL Eosinophils # (Auto) 0.1 0-0.8 10 ^3/uL Basophils # (Auto) 0 0-0.2 10 ^3/uL Nucleated Red Blood Cells 0.0 % Sodium Level 145 136-145 mmol/L Potassium Level 4.3 3.5-5.1 mmol/L Chloride Level 111 H 98-107 mmol/L Carbon Dioxide Level 31 20-31 mmol/L Anion Gap 3 L 5-15 Blood Urea Nitrogen 12 9-23 mg/dL Creatinine 0.82 0.700-1.30 mg/dL Glomerular Filtration Rate Calc 85 >90 mL/min BUN/Creatinine Ratio 14.6 10.0-20.0 Serum Glucose 112 H 74-106 mg/dL Calcium Level 9.7 8.7-10.4 mg/dL Time of 1ST Reevaluation: 22:00 Reevaluation 1ST: Unchanged Patient Education/Counseling: Other (patient has dementia) Family Education/Counseling: Diagnosis, Treatment Additional Information Previous visits reviewed: June 24, 2024 encounter for fall injury The following tests were ordered, and results were reviewed by me: troponin, head CT w/o contrast, CXR, UA, CBC, BMP, left hip X-ray Additional Information was gathered from interviewing the following independent historians: EMS I reviewed and agreed with the following test results read by other providers: head CT w/o contrast, CXR, left-hip X-ray I discussed treatment and results with medical personnel Departure 1 Departure Time of Disposition: 00:46 (Patient's workup is benign. Patient was offered admission however family wants to take him home. Discharge patient home with outpatient follow up) Impression: Primary Impression: Fall Qualified Codes: W19.XXXA - Unspecified fall, initial encounter Disposition: HOME / SELF CARE / HOMELESS Condition: Stable Additional Instructions: Your workup today was benign. You can take Tylenol or Motrin as needed for pain. You should follow up with your regular doctor within 1 week. You should stay well rested and well hydrated. If your symptoms worsen or you have any other concerns please return to the emergency room. Discharged With: Self Critical Care Note Critical Care Time?: No Stability Stability form required: No Heart Score Heart Score: Heart Score Response (Comments) Value History N/A 0 EKG N/A 0 Age N/A 0 Risk Factors N/A 0 Troponin N/A 0 Total 0 I personally scribed for JUSTINE VILLALTA MD ([email or web address]) on 10/17/24 at 22:24. Electronically submitted by Ross Delgadillo ([email or web address]). I personally scribed for JUSTINE VILLALTA MD ([email or web address]) on 10/17/24 at 22:47. Electronically submitted by Ross Delgadillo ([email or web address]). JUSTINE VILLALTA MD October 17, 2024 22:24
--- NOTE | 2024-10-17 23:54 | DVH ---
CHEST RADIOGRAPH Indication: fall Technique: Single frontal view of the chest was obtained COMPARISON: None FINDINGS: Lines and Tubes: None Lungs: Clear Pleura: No effusion. No pneumothorax. Cardiomediastinal contours: Unremarkable IMPRESSION: No acute disease.
--- NOTE | 2024-10-17 23:58 | DVH ---
CLINICAL INDICATION: fall TECHNIQUE: XY L HIP COMPLETE XRAY Comparison: XY R HIP COMPLETE XRAY on DOS: 06/24/24 FINDINGS: No evidence of fracture or dislocation. Mild degenerative changes in both hip joints. IMPRESSION: No evidence of fracture or dislocation.
--- NOTE | 2024-10-18 00:09 | DVH ---
CT HEAD WITHOUT CONTRAST INDICATION: fall COMPARISON: HEAD WITHOUT CONTRAST on DOS: 02/27/22 TECHNIQUE: CT of the head without intravenous contrast. RADIATION DOSE: CTDIvol: 53.83 mGy, DLP: 862.95 mGy*cm FINDINGS: There is no evidence of intracranial hemorrhage, acute infarct, extra-axial collection, mass effect, midline shift, herniation or hydrocephalus. 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 Mild ventricular enlargement and sulcal enlargement related to cerebral volume loss. Mild mucosal thickening in maxillary sinuses greater on the left side; otherwise unremarkable. Mastoi d air cells and middle ear cavities are clear. Soft tissues and osseous structures are unremarkable. IMPRESSION: No hemorrhage or other acute intracranial abnormality. Chronic microvascular ischemic changes.
[2024-10-18 01:17] VITALS: BP 163/75; PULSE 64; RESP 12; TEMP 98.1; O2SAT 96
== END 2024-10-18 01:21 | disposition home or self-care (01) ==
LOC: ER 21:15 → EDBD 21:15 → ER 10-18 01:21
DX: M25.552 Pain in left hip (principal); F03.90 Unspecified dementia, unspecified severity, without behavioral disturbance, psychotic disturbance, mood disturbance, and anxiety; M10.9 Gout, unspecified; I10 Essential (primary) hypertension; Z79.899 Other long term (current) drug therapy; W19.XXXA Unspecified fall, initial encounter; Y93.89 Activity, other specified; Y92.89 Other specified places as the place of occurrence of the external cause; Y99.8 Other external cause status
CPT/HCPCS: 36415; 70450; 71045; 73502; 80048; 84484; 85025

== ENCOUNTER 2025-02-09 04:29 | Inpatient (IN) | payer OTHER ==
[~2025-02-09] VITALS: Ht 170.2 cm; Wt 81.0 kg
[2025-02-09 04:50] VITALS: PULSE 68; RESP 11; O2SAT 96
--- NOTE | 2025-02-09 04:57 | ED.PDOC ---
Alfred. trauma (HPI) HPI Comments 89-year-old male who came to ER via EMS for fall injury approximately 20 minutes prior to arrival. Per EMS patient picked up at home. Patient has history of dementia and hypertension. He takes aspirin at home. Patient woke up and went to the bathroom without wearing his slippers. He tripped accidentally on his pajamas and fell face first on the bathroom floor. He denies having any lightheadedness, dizziness, chest pain, shortness of breath or weakness associated with the event. Noted laceration on his right eyebrow and right cheek. Noted abrasion on his left knee. No loss of consciousness noted and patient was assisted up by paramedics. Patient still able to ambulate after the fall. REVIEW OF SYSTEMS: General: No fever, no chills, or fatigue HEENT: No sore throat, no earache, no congestion, no neck pain. Cardiac: No chest pain. No palpitations. Lungs: No shortness of breath, no cough. GI: No nausea, no vomiting, no diarrhea, no constipation, no abdominal pain : No dysuria, frequency, or urgency. No hematuria. Musculoskeletal: No joint pain , no joint swelling, no extremity edema. Skin: No rash, no itching. (+) laceration right eyebrow/ cheek Neuro: No headache, no dizziness, no weakness Physical exam GEN: Patient alert, in no acute distress HEENT:Bruising around right eye. 1.5 cm laceration lateral inferior orbit. 0.5 cm laceration lateral superior orbit.. Facial bones without deformities or tenderness EYES: PERRL. no scleral icterus or conjunctival injection. Extraocular muscles intact without nystagmus or diplopia. No proptosis or enophthalmos. EARS: Normal-appearing pinnae. No hemotympanum. NOSE: Trachea midline. No discolorations or edema. Neck immobilized in cervical collar. CVS: S1-S2 heard, regular rate and rhythm, no murmur RESPIRATORY: No respiratory distress. Breath sounds clear bilateral, no wheezes, rhonchi or rales; no use of accessory muscles CHEST: No abrasions or ecchymosis. Chest symmetric with respirations. No chest wall tenderness. No crepitus. No step-offs. Lungs are clear to auscultation bilaterally. No rales, rhonchi, wheezing or stridor. ABDOMINAL: No ecchymosis or abrasions. Soft, nondistended, nontender. Bowel tones normoactive. No masses or organomegaly. : No CVA tenderness MUSC: Left knee with abrasion, Good range of motion, Mild tenderness to palpation. No gross deformities are discolorations or lesions. Tolerates full range of motion of extremities without tenderness to other extremities BACK: No abrasions, skin openings or ecchymosis. Spine without bony tenderness. No step-offs. PELVIC: Pelvis stable, nontender to lateral compression and palpation of the symphysis pubis. NEURO: Alert and oriented to person, place and time. GCS 15. Cranial nerves II through XII intact. Sensation grossly intact. Strength 5 out of 5 in bilateral upper and lower extremities. SKIN: Warm and well perfused. Above-mentioned lacerations and bruises, discoloration or abrasions. Erythema under left breast. PSYCH: Normal affect, normal mood, no apparent hallucinations, speech clear Chief Complaint: Fall Injury Time Seen by MD: 04:57 Reviewed notes: Can Coverer Notes Allergies: Coded Allergies: NO KNOWN ALLERGIES (Unverified , 11/29/17) Home Meds Active Scripts Naproxen Sodium (ALEVE ARTHRITIS) 220 Mg Tab, 220 MG PO BID for 5 Days, #10 TAB Prov:JOANNE MULTANI MD 06/24/24 Ciprofloxacin Hcl (Ophth) (Cipro Opthalmic Soln) [address], 2 DROP RIGHTEYE Q6HR for 5 Days, #5 ML Prov:BAHMAN LOPEZ MD 02/27/22 Sulfamethoxazole-Trimethoprim (Bactrim) 1 Tab Tab, 1 TAB PO BID for 7 Days, #14 MG Prov:BRYANT ANDERSON MD 10/26/21 Reported Medications Carboxymethylcellulose-Glyceri (REFRESH OPTIVE) 1 Ml Korey, 1 ML OP, DROP 10/21/21 Ciclopirox (CICLOPIROX TREATMENT) 8 % Kit, 8 % EX, KIT 10/21/21 Lactic Acid (Ammonium Lactate) 12 % Lot, 12 % EX, BOTTLE 10/21/21 Alendronate Sodium (Alendronate Sodium) 70 Mg Tab, 70 MG PO Q7D, TAB 10/21/21 Bimatoprost (Lumigan) 0.01 % Camille, 0.01 % OP, ML 10/21/21 Multiple Vitamins W/ Minerals (OCUVITE EYE HEALTH FORMUL) Health Cap, 1 CAP OR DAILY, CAP 11/29/17 Calcium Carbonate-Cholecalcife (Calcium 500 +D3 500-600 mg-Unit) 1 Tab Tab, 1 TAB PO DAILY, TAB 11/29/17 Tamsulosin Hcl (Tamsulosin Hcl) 0.4 Mg Cap, 0.4 MG PO QPM for 30 Days, MG 08/27/17 Benazepril Hcl (Benazepril Hcl) 10 Mg Tab, 10 MG PO DAILY for 30 Days, MG 08/27/17 Metoprolol Succinate (Metoprolol Succinate Er) 25 Mg Tab, 25 MG PO DAILY for 30 Days, MG 08/27/17 Aspirin (ASPIRIN 81) 81 Mg Tab, 81 MG OR, TAB 02/19/15 Cholecalciferol (D3) 2,000 Unit Tab, 2000 UNIT PO, TAB 02/19/15 Calcium & Phosphorus W/ Vitami (CALCIUM) Tab, 600 MG PO DAILY, TAB 02/19/15 Multiple Vitamins W/ Minerals (MULTI COMPLETE) Complete Cap, 1 OR, CAP 02/19/15 Memantine Hydrochloride (NAMENDA XR) 28 Mg Cap, 28 MG OR DAILY, CAP 02/19/15 Allopurinol (ZYLOPRIM TABLET) 100 Mg Tb, 1 TAB PO BID, #30 TAB 5 Refills 02/19/15 Buspirone Hcl (Buspar) 10 Mg Tab, 10 MG PO TID, TAB 02/19/15 Ezetimibe-Simvastatin (Vytorin) 1 Tab Tab, 1 TAB PO DAILY, #30 TAB 5 Refills 02/19/15 Potassium Chloride (KLOR-CON TABLET) 20 Meq Tb, 1 TAB PO DAILY, #90 TAB 1 Refill 02/19/15 Information Source: Patient, Emergency Med Personnel Mode of Arrival: EMS Past Medical History PAST MEDICAL HISTORY: Dementia, Gout, High Lipids, HTN Surgical History: Denies all surgeries Family History Family History: Reviewed,noncontributory to illness Social History Smoker: Non-Smoker Alcohol: Denies ETOH Use Drugs: Denies Drug Use Lives In: Home Was a procedure done? Was a procedure done?: Yes Sedation Sedation?: No Laceration Repair : Location Right eyebrow, right cheek Length 1cm, 2cm Anesthetic: Nothing Laceration Repair Prep: Saline Laceration Repair Wound Comple: epidermis/dermis repair Laceration Repair: Simple (Steri-Strips) Informed consent obtained: Yes Risks, benefits, and alternati: Yes EKG EKG : Comments Sinus rhythm at a rate of 65. QTC 460. RSR prime. No STEMI. Differential Diagnosis Multiple Trauma: Closed Head Injury, Fractures, Hematoma, Laceration X-Ray, Labs, Meds, VS Vital Signs Date Time Temp Pulse Resp B/P (MAP) Pulse Ox O2 Delivery O2 Flow Rate FiO2 02/09/25 09:01 62 11 138/65 (89) 93 02/09/25 07:33 98.0 87 13 155/92 (113) 98 98.0 02/09/25 07:33 87 13 98 Room Air* 0 02/09/25 07:31 91 22 155/92 (113) 94 02/09/25 05:46 75 14 159/72 (101) 92 02/09/25 05:21 97.7 02/09/25 04:52 65 02/09/25 04:50 68 11 96 Room Air* 0 02/09/25 04:50 97.7 68 11 184/85 (118) 96 97.7 02/09/25 04:29 98.3 60 16 165/84 98 98.3 Lab Test 02/09/25 08:41 02/09/25 08:22 Range/Units White Blood Count 7.2 4.4-10.8 10^3/uL Red Blood Count 4.39 L 4.5-5.90 10^6/uL Hemoglobin 14.2 13.5-17.5 g/dL Hematocrit 41.7 41.0-53.0 % Mean Corpuscular Volume 94.9 80.0-100.0 fL Mean Corpuscular Hemoglobin 32.3 H 28.0-32.0 pg Mean Corpuscular Hemoglobin Concent 34.0 32.0-36.0 g/dL Red Cell Distribution Width 14.3 11.8-14.3 % Platelet Count 162 140-450 10^3/uL Mean Platelet Volume 7.5 6.9-10.8 fL Neutrophils (%) (Auto) 74.4 37.0-80.0 % Lymphocytes (%) (Auto) 16.9 10.0-50.0 % Monocytes (%) (Auto) 7.9 0.0-12.0 % Eosinophils (%) (Auto) 0.3 0.0-7.0 % Basophils (%) (Auto) 0.5 0.0-2.0 % Neutrophils # (Auto) 5.4 1.6-8.6 10 ^3/uL Lymphocytes # (Auto) 1.2 0.4-5.4 10 ^3/uL Monocytes # (Auto) 0.6 0-1.3 10 ^3/uL Eosinophils # (Auto) 0 0-0.8 10 ^3/uL Basophils # (Auto) 0 0-0.2 10 ^3/uL Nucleated Red Blood Cells 0.0 % Sodium Level 144 136-145 mmol/L Potassium Level 3.5 3.5-5.1 mmol/L Chloride Level 106 98-107 mmol/L Carbon Dioxide Level 28 20-31 mmol/L Anion Gap 10 5-15 Blood Urea Nitrogen 13 9-23 mg/dL Creatinine 0.80 0.700-1.30 mg/dL Glomerular Filtration Rate Calc 86 >90 mL/min BUN/Creatinine Ratio 16.3 10.0-20.0 Serum Glucose 109 H 74-106 mg/dL Calcium Level 9.1 8.7-10.4 mg/dL Total Bilirubin 0.9 0.2-1.0 mg/dL Aspartate Amino Transferase (AST) 30 13-40 U/L Alanine Aminotransferase (ALT) 28 7-40 U/L Alkaline Phosphatase 69 46-116 U/L Total Protein 6.2 5.7-8.2 g/dL Albumin 4.1 3.2-4.8 g/dL Urine Color Colorless Yellow Urine Clarity Clear Clear Urine pH 7.0 5.0-9.0 Urine Specific Follansbee 1.008 1.001-1.035 Urine Protein Negative Negative Urine Ketones Negative Negative Urine Blood Negative Negative /uL Urine Nitrite Negative Negative Urine Bilirubin Negative Negative Urine Urobilinogen Normal Negative mg/dL Urine Leukocyte Esterase Negative Negative /uL Urine RBC 2 0 - 3 /hpf Urine Microscopic WBC < 1 0-3 /HPF Urine Squamous Epithelial Cells None seen <5 /hpf Urine Bacteria None seen None Seen /hpf Urine Glucose Normal Normal mg/dL Current Medications Medications (Trade) Dose Ordered Sig/Nikko Route Start Time Stop Time Status Last Admin Acetaminophen (Tylenol Tablet) 650 mg ONCE ONCE PO 02/09/25 05:00 02/09/25 05:01 DC 02/09/25 05:21 Bacitracin 1 applic ONCE ONCE TOP 02/09/25 05:00 02/09/25 05:01 DC 02/09/25 05:21 PATIENT: HERMAN ROBERTS EACCT: [id number] UNIT: [id number] : 1935 LOC: ER ROOM / BED: / AGE / SEX: 89 / M ADM STATUS: REG ER SERVICE 0450 ORDERING PHYSICIAN: SAUNDRA CAMACHO MD PROCEDURE(s): HWOCT - HEAD WITHOUT CONTRAST REASON: Fall, head neck and face injury ORDER NUMBER(s): [id number], ACCESSION NUMBER(s): [id number] EXAM: CT HEAD WITHOUT CONTRAST INDICATION: Fall, head neck and face injury TECHNIQUE: CT of the head without intravenous contrast. Radiation Dose : 1. Head: CT Dose: CTDI volume is 61.09 mGy. Dose-length product is 1326.01 mGy*cm The dose indicators for CT are the volume Computed Tomography (CT) Dose Index (CTDIvol) and the Dose Length Product (DLP), and are measured in units of mGy and mGy-cm, respectively. These indicators are not patient dose, but values generated from the CT scanner acquisition factors. The report includes radiation exposure data for exposures received during this examination. COMPARISON: CT HEAD WITHOUT CONTRAST on DOS: 10/17/24, HEAD WITHOUT CONTRAST on DOS: 02/27/22 FINDINGS: There is no evidence of acute intracranial hemorrhage, extra-axial collection, mass effect, midline shift, herniation or hydrocephalus. Increased prominence of the ventricles, sulci and cisterns consistent with sequelae of atrophic cortical volume loss. The allison-white differentiation is intact. Moderate diffuse confluent periventricular and subcortical white matter hypoattenuation is nonspecific but may be related to small vessel ischemic disease. Bilateral maxillary mucosal sinus disease. The remaining visualized paranasal sinuses and mastoid air cells are clear. Moderate right periorbital and preseptal soft tissue swelling and edema. The surrounding soft tissues and osseous structures are otherwise unremarkable. IMPRESSION: 1. No CT evidence of acute intracranial abnormality. 2. Chronic sequelae of microangiopathy and atrophic cortical volume loss. 3. Moderate right periorbital and preseptal soft tissue swelling and edema. 4. Bilateral maxillary sinus disease. Radiation optimization: All CT scans at this facility use at least one of these dose optimization techniques: automated exposure control mA and/or kV adjustment per patient size (includes targeted exams where dose is matched to clinical indication) or iterative reconstruction. ATED BY: THOMAS GOODEN MD DICTATED DATE/TIME: 02/09/25540 SIGNED BY: THOMAS GOODEN MD SIGNED DATE/TIME: 02/09/25540 CC: 9:34am: Patient was initially seen by Dr. Camacho overnight. Plan was for discharge. However nursing staff informed me at time of discharge the patient is unable to ambulate and he is very weak. It is taking 2-3 people to get him up and into a wheelchair. I have evaluated the patient myself. is at bedside who states this is not normal for him. He is not normally this week and normally able to ambulate much more. She is concerned she will not be able to take care of him at home. Additionally the exact cause of his current fall and current weakness is unclear. I ordered a CBC BMP which has been done which are largely unremarkable. Including a normal urinalysis. I reviewed all his imaging studies done. Including a CT scan of the brain and cervical spine. As well as maxillofacial CT. At this time there was evidence of moderate right periorbital and preseptal soft tissue swelling and edema to his right side of the face. T here was no evidence of intracranial hemorrhage. At this time I have contacted hospitalist team for admission. Time of 1ST Reevaluation: 04:51 Reevaluation 1ST: Unchanged Time of 2ND Reevaluation: 09:20 Reevaluation 2ND: Unchanged Patient Education/Counseling: Need For Follow Up Family Education/Counseling: No Family Present Departure 1 Departure Time of Disposition: 05:44 Impression: Primary Impression: Fall with injury Additional Impression: Closed head injury Disposition: ADMITTED INPATIENT Condition: Stable Additional Instructions: ED DISCHARGE INSTRUCTIONS Instructions: Please read all instructions provided in this packet carefully. Although you have been discharged from the Emergency Department, this does not mean that you have a "clean bill of health". No definitive diagnosis for your symptoms has been made today. It is possible that you are in the process of developing a serious illness. This is why you must return to the ED without fail if any new or worsening symptoms (especially if your symptoms include chest pain, trouble breathing, abdominal pain, fever, headache, confusion, trouble seeing, or trouble walking) It is also very important that you see a primary care provider (PCP) within the next 3-5 days to follow up. If you are unable to get an appointment, return to the ED for re-evaluation. Head Injury: Care Instructions Table of Contents Overview How can you care for yourself at home? When should you call for help? Credits Overview Most injuries to the head are minor. Bumps, cuts, and scrapes on the head and face usually heal well and can be treated the same as injuries to other parts of the body. Although it's rare, once in a while a more serious problem shows up after you are home. So it's good to be on the lookout for symptoms for a day or two. Follow-up care is a valenzuela part of your treatment and safety. Be sure to make and go to all appointments, and call your doctor if you are having problems. It's also a good idea to know your test results and keep a list of the medicines you take. How can you care for yourself at home? Follow your doctor's instructions. The doctor will tell you if you need someone to watch you closely for the next 24 hours or longer. Take it easy for the next few days or more if you are not feeling well. Ask your doctor when it's okay for you to go back to activities like driving a car, riding a bike, or operating machinery. When should you call for help? Call 911 anytime you think you may need emergency care. For example, call if: You have a seizure. You passed out (lost consciousness). You are confused or can't stay awake. You have a headache that gets worse and does not go away. You have new vision changes or one pupil (the black part in the middle of the eye) that is larger than the other. You have slurred speech, balance problems, or decreased coordination. Call your doctor now or seek immediate medical care if: You have new or worse vomiting. You feel less alert. You have new weakness or numbness in any part of your body. You have new symptoms, such as unclear thinking or changes in mood. Watch closely for changes in your health, and be sure to contact your doctor if: You do not get better as expected. Credits for Head Injury: Care Instructions Current as of: May 12, 2023 Author: [employer] Staff Practice fall safety and prevention. Wear low-heeled shoes that fit well and give your feet good support. Talk to your doctor if you have foot problems that make this hard. Carry a cellphone or wear a medical alert device that you can use to call for help. Use stepladders instead of chairs to reach high objects. Don't climb if you're at risk for falls. Ask for help, if needed. Wear the correct eyeglasses, if you need them. Make your home safer. Remove rugs, cords, clutter, and furniture from walkways. Keep your house well lit. Use night-lights in hallways and bathrooms. Install and use sturdy handrails on stairways. Wear nonskid footwear, even inside. Don't walk barefoot or in socks without shoes. Be safe outside. Use handrails, curb cuts, and ramps whenever possible. Keep your hands free by using a shoulder bag or backpack. Try to walk in well-lit areas. Watch out for uneven ground, changes in pavement, and debris. Be careful in the winter. Walk on the grass or gravel when sidewalks are slippery. Use de-icer on steps and walkways. Add non-slip devices to shoes. Comments 89-year-old male status post mechanical fall the head and knee injury No acute fracture, intracranial hemorrhage identified on imaging. Patient neurologically intact. Patient felt stable for discharge home to follow up with primary care provider Critical Care Note Critical Care Time?: No Stability Stability form required: No Heart Score Heart Score: Heart Score Response (Comments) Value History N/A 0 EKG N/A 0 Age N/A 0 Risk Factors N/A 0 Troponin N/A 0 Total 0 I personally scribed for SAUNDRA CAMACHO MD ([email or web address]) on 02/09/25 at 04:57. Electronically submitted by Octaviano Molina ([email or web address]). SAUNDRA CAMACHO MD Feb 09, 2025 04:57 JOHNNY HERNANDEZ MD Feb 09, 2025 09:35
[2025-02-09] MEDS: BACITRACIN TOP OINT 1 UD PKG TOP ONE (05:21)
[2025-02-09] MEDS: ACETAMINOPHEN 325 MG TAB PO ONE (05:21)
--- NOTE | 2025-02-09 05:33 | DVH ---
CLINICAL INDICATION: Fall, left knee pain TECHNIQUE: XY L KNEE 2V XRAY Comparison: XY L HIP COMPLETE XRAY on DOS: 10/17/24, XY R HIP COMPLETE XRAY on DOS: 06/24/24, XY R HIP C OMPLETE XRAY on DOS: 05/29/24 FINDINGS/IMPRESSION: : There is no evidence of acute fracture or dislocation. Soft tissues are unremarkable.
--- NOTE | 2025-02-09 05:44 | DVH ---
EXAM: CT HEAD WITHOUT CONTRAST INDICATION: Fall, head neck and face injury TECHNIQUE: CT of the head without intravenous contrast. Radiation Dose : 1. Head: CT Dose: CTDI volume is 61.09 mGy. Dose-length product is 1326.01 mGy*cm The dose indicators for CT are the volume Computed Tomography (CT) Dose Index (CTDIvol) and the Dose Length Product (DLP), and are measured in units of mGy and mGy-cm, respectively. These indicators are not patient dose, but values generated from the CT scanner acquisition factors. The report includes radiation exposure data for exposures received during this examination. COMPARISON: CT HEAD WITHOUT CONTRAST on DOS: 10/17/24, HEAD WITHOUT CONTRAST on DOS: 02/27/22 FINDINGS: There is no evidence of acute intracranial hemorrhage, extra-axial collection, mass effect, midline s hift, herniation or hydrocephalus. Increased prominence of the ventricles, sulci and cisterns consistent with sequelae of atrophic corti beni volume loss. The allison-white differentiation is intact. Moderate diffuse confluent periventricular and subcortical white matter hypoattenuation is nonspecifi c but may be related to small vessel ischemic disease. Bilateral maxillary mucosal sinus disease. The remaining visualized paranasal sinuses and mastoid ai r cells are clear. Moderate right periorbital and preseptal soft tissue swelling and edema. The surrounding soft tissues and osseous structures are otherwise unremarkable. IMPRESSION: 1. No CT evidence of acute intracranial abnormality. 2. Chronic sequelae of microangiopathy and atrophic cortical volume loss. 3. Moderate right periorbital and preseptal soft tissue swelling and edema. 4. Bilateral maxillary sinus disease. Radiation optimization: All CT scans at this facility use at least one of these dose optimization cici hniques: automated exposure control mA and/or kV adjustment per patient size (includes targeted exam s where dose is matched to clinical indication) or iterative reconstruction.
--- NOTE | 2025-02-09 05:44 | DVH ---
HISTORY: Fall, head neck and face injury TECHNIQUE: Nonenhanced axial images through the facial bones with coronal and sagittal MPR. Radiation Dose Information: CT Dose: CTDI volume is 66.97 mGy. Dose-length product is 1447.33 mGy*cm COMPARISON: MAXILLOFACIAL WITHOUT on DOS: 02/27/22, FAC2C on DOS: 02/27/22 FINDINGS: No acute fracture. Soft tissue swelling overlying the right maxilla. Chronic polypoid opacities of th e maxillary sinuses. Multiple absent teeth and dental restorations. Surgical lens replacements. IMPRESSION: 1. No acute facial fractures. 2. Right maxillary soft tissue injury. Radiation optimization: All CT scans at this facility use at least one of these dose optimization cici hniques: automated exposure control mA and/or kV adjustment per patient size (includes targeted exam s where dose is matched to clinical indication) or iterative reconstruction.
--- NOTE | 2025-02-09 05:56 | DVH ---
EXAM: CT CERVICAL WITHOUT CONTRAST HISTORY: Fall, head neck and face injury COMPARISON: CT HEAD WITHOUT CONTRAST on DOS: 02/09/25, CT HEAD WITHOUT CONTRAST on DOS: 10/17/24, CERVI INÉS WITHOUT CONTRAST on DOS: 02/27/22, HEAD WITHOUT CONTRAST on DOS: 02/27/22 CTDIvol 22.79 mGy, DLP 627.35 mGy*cm. TECHNIQUE: Multiple axial CT images of the spine were obtained using bone algorithm. Axial and coron al reformatting was done. Bone and soft tissue windows were reviewed. FINDINGS: Slight exaggeration of normal cervical lordosis. No CT evidence of definite acute fracture, spinal dislocation, or significant appearing acute subluxa tion is seen. The visualized paraspinal soft tissues are grossly unremarkable. Mild degenerative changes of the cervical spine include minimal multilevel anterior osteophytosis and moderate bilateral multifocal facet hypertrophy. Bilateral maxillary mucosal sinus disease. IMPRESSION: 1. No definite CT evidence of acute fracture or dislocation of the bony cervical spine. 2. Degenerative change of the cervical spine.
--- NOTE | 2025-02-09 05:56 | ECG ---
[facility] Test Date: 2025-02-09 Test Time: 04:52:03 Pat Name: HERMAN ROBERTS Department: Room: 0246 Gender: M Interactive Video Technician: ONESIMO : 1935 Requested By: SAUNDRA MONTESINOS Order Number: [id number] Reading MD: Cayetano Delacruz Measurements Intervals [place] Rate: 65 P: 50 VA: 195 QRS: 21 QRSD: 101 T: 64 QT: 442 QTc: 460 Interpretive Statements Sinus rhythm RSR' in V1 or V2, probably normal variant Electronically Signed On 02-12-2025 18:41:31 PDT by Cayetano Delacruz Please click the below link to view image of tracing.
[2025-02-09 07:33] VITALS: PULSE 87; RESP 13; O2SAT 98
[2025-02-09 08:47] LABS: Hematocrit 41.7 % (41.0-53.0); Hemoglobin 14.2 g/dL (13.5-17.5); Mean Corpuscular Hemoglobin 32.3 pg (28.0-32.0); Mean Corpuscular Volume 94.9 fL (80.0-100.0); Nucleated Red Blood Cells % 0.0 %
[2025-02-09 08:52] LABS: Urine Protein, UAD Negative (Negative)
[2025-02-09 09:04] LABS: Alanine Aminotransferase 28 U/L (7-40); Albumin 4.1 g/dL (3.2-4.8); Alkaline Phosphatase 69 U/L (46-116); Anion Gap 10 (5-15); BUN/Creatinine Ratio 16.3 (10.0-20.0); Bilirubin, Total 0.9 mg/dL (0.2-1.0); Blood Urea Nitrogen 13 mg/dL (9-23); Calcium 9.1 mg/dL (8.7-10.4); Carbon Dioxide 28 mmol/L (20-31); Chloride 106 mmol/L (98-107); Glucose 109 mg/dL (74-106); Potassium 3.5 mmol/L (3.5-5.1); Sodium 144 mmol/L (136-145); Total Protein 6.2 g/dL (5.7-8.2)
--- NOTE | 2025-02-09 09:20 | DVHHP2 ---
History of Present Illness Reason for Visit: Status post fall History of Present Illness Alvin Feldman is an 89-year-old male with past medical history of dementia, gout, hyperlipidemia, and hypertension who presents to the ED status post fall while going to the bathroom. Per reports he accidentally tripped on his pajama pants and fell face on the bathroom floor then woke up. Patient reports that he does not recall where he fell or how he fell. He reports that he lives at home with his . Patient denies any recent travels, fever, chills, lightheadedness, weakness, di zziness, chest pain, shortness of breath, abdominal pain, nausea, vomiting, or diarrhea. Upon examination patient currently has a laceration lateral to the right side of his eye with bruising noted. Steri-Strips are also noted. Called [facility] on contacts and no answer. Cardiovascular: HTN, hyperipidemia BOOKSTORE CLERK: Dementia Rheumatologic: Gout Past Surgical History: None Smoke: No ALCOHOL: none Drugs: None Lives: with Family Domestic Violence: Neg Review of Systems Skin: Bruising, Other (Right-sided laceration lateral to the eye) Allergies: Coded Allergies: NO KNOWN ALLERGIES (Unverified , 11/29/17) Exam Vital Signs Vital Signs Date Time Temp Pulse Resp B/P (MAP) Pulse Ox O2 Delivery O2 Flow Rate FiO2 02/09/25 07:31 91 22 155/92 (113) 94 02/09/25 05:21 97.7 02/09/25 04:50 Room Air* 0 21 General Appearance: Alert, Cooperative, No acute distress HEENT: Mucous membr. moist/pink Respiratory: Clear to auscultation, Normal air movement Cardiovascular: Regular rate, Normal S1, Normal S2 Abdominal: Normal bowel sounds, Soft Extremities: Normal pulses Neuro: Normal speech, Normal tone, Sensation intact Psych/Mental Status: Mental status NL, Mood NL Labs/Xrays Labs Test 02/09/25 08:41 02/09/25 08:22 Range/Units White Blood Count 7.2 4.4-10.8 10^3/uL Red Blood Count 4.39 L 4.5-5.90 10^6/uL Hemoglobin 14.2 13.5-17.5 g/dL Hematocrit 41.7 41.0-53.0 % Mean Corpuscular Volume 94.9 80.0-100.0 fL Mean Corpuscular Hemoglobin 32.3 H 28.0-32.0 pg Mean Corpuscular Hemoglobin Concent 34.0 32.0-36.0 g/dL Red Cell Distribution Width 14.3 11.8-14.3 % Platelet Count 162 140-450 10^3/uL Mean Platelet Volume 7.5 6.9-10.8 fL Neutrophils (%) (Auto) 74.4 37.0-80.0 % Lymphocytes (%) (Auto) 16.9 10.0-50.0 % Monocytes (%) (Auto) 7.9 0.0-12.0 % Eosinophils (%) (Auto) 0.3 0.0-7.0 % Basophils (%) (Auto) 0.5 0.0-2.0 % Neutrophils # (Auto) 5.4 1.6-8.6 10 ^3/uL Lymphocytes # (Auto) 1.2 0.4-5.4 10 ^3/uL Monocytes # (Auto) 0.6 0-1.3 10 ^3/uL Eosinophils # (Auto) 0 0-0.8 10 ^3/uL Basophils # (Auto) 0 0-0.2 10 ^3/uL Nucleated Red Blood Cells 0.0 % Sodium Level 144 136-145 mmol/L Potassium Level 3.5 3.5-5.1 mmol/L Chloride Level 106 98-107 mmol/L Carbon Dioxide Level 28 20-31 mmol/L Anion Gap 10 5-15 Blood Urea Nitrogen 13 9-23 mg/dL Creatinine 0.80 0.700-1.30 mg/dL Glomerular Filtration Rate Calc 86 >90 mL/min BUN/Creatinine Ratio 16.3 10.0-20.0 Serum Glucose 109 H 74-106 mg/dL Calcium Level 9.1 8.7-10.4 mg/dL Total Bilirubin 0.9 0.2-1.0 mg/dL Aspartate Amino Transferase (AST) 30 13-40 U/L Alanine Aminotransferase (ALT) 28 7-40 U/L Alkaline Phosphatase 69 46-116 U/L Total Protein 6.2 5.7-8.2 g/dL Albumin 4.1 3.2-4.8 g/dL Urine Color Colorless Yellow Urine Clarity Clear Clear Urine pH 7.0 5.0-9.0 Urine Specific [place] 1.008 1.001-1.035 Urine Protein Negative Negative Urine Ketones Negative Negative Urine Blood Negative Negative /uL Urine Nitrite Negative Negative Urine Bilirubin Negative Negative Urine Urobilinogen Normal Negative mg/dL Urine Leukocyte Esterase Negative Negative /uL Urine RBC 2 0 - 3 /hpf Urine Microscopic WBC < 1 0-3 /HPF Urine Squamous Epithelial Cells None seen <5 /hpf Urine Bacteria None seen None Seen /hpf Urine Glucose Normal Normal mg/dL HISTORY: Fall, head neck and face injury TECHNIQUE: Nonenhanced axial images through the facial bones with coronal and sagittal MPR. Radiation Dose Information: CT Dose: CTDI volume is 66.97 mGy. Dose-length product is 1447.33 mGy*cm COMPARISON: MAXILLOFACIAL WITHOUT on DOS: 02/27/22, FAC2C on DOS: 02/27/22 FINDINGS: No acute fracture. Soft tissue swelling overlying the right maxilla. Chronic polypoid opacities of the maxillary sinuses. Multiple absent teeth and dental restorations. Surgical lens replacements. IMPRESSION: 1. No acute facial fractures. 2. Right maxillary soft tissue injury. CLINICAL INDICATION: Fall, left knee pain TECHNIQUE: XY L KNEE 2V XRAY Comparison: XY L HIP COMPLETE XRAY on DOS: 10/17/24, XY R HIP COMPLETE XRAY on DOS: 06/24/24, XY R HIP COMPLETE XRAY on DOS: 05/29/24 FINDINGS/IMPRESSION: : There is no evidence of acute fracture or dislocation. Soft tissues are unremarkable. EXAM: CT HEAD WITHOUT CONTRAST INDICATION: Fall, head neck and face injury TECHNIQUE: CT of the head without intravenous contrast. Radiation Dose : 1. Head: CT Dose: CTDI volume is 61.09 mGy. Dose-length product is 1326.01 mGy*cm The dose indicators for CT are the volume Computed Tomography (CT) Dose Index (CTDIvol) and the Dose Length Product (DLP), and are measured in units of mGy and mGy-cm, respectively. These indicators are not patient dose, but values generated from the CT scanner acquisition factors. The report includes radiation exposure data for exposures received during this examination. COMPARISON: CT HEAD WITHOUT CONTRAST on DOS: 10/17/24, HEAD WITHOUT CONTRAST on DOS: 02/27/22 FINDINGS: There is no evidence of acute intracranial hemorrhage, extra-axial collection, mass effect, midline shift, herniation or hydrocephalus. Increased prominence of the ventricles, sulci and cisterns consistent with sequelae of atrophic cortical volume loss. The allison-white differentiation is intact. Moderate diffuse confluent periventricular and subcortical white matter hypoattenuation is nonspecific but may be related to small vessel ischemic disease. Bilateral maxillary mucosal sinus disease. The remaining visualized paranasal sinuses and mastoid air cells are clear. Moderate right periorbital and preseptal soft tissue swelling and edema. The surrounding soft tissues and osseous structures are otherwise unremarkable. IMPRESSION: 1. No CT evidence of acute intracranial abnormality. 2. Chronic sequelae of microangiopathy and atrophic cortical volume loss. 3. Moderate right periorbital and preseptal soft tissue swelling and edema. 4. Bilateral maxillary sinus disease. EXAM: CT CERVICAL WITHOUT CONTRAST HISTORY: Fall, head neck and face injury COMPARISON: CT HEAD WITHOUT CONTRAST on DOS: 02/09/25, CT HEAD WITHOUT CONTRAST on DOS: 10/17/24, CERVICAL WITHOUT CONTRAST on DOS: 02/27/22, HEAD WITHOUT C ONTRAST on DOS: 02/27/22 CTDIvol 22.79 mGy, DLP 627.35 mGy*cm. TECHNIQUE: Multiple axial CT images of the spine were obtained using bone algorithm. Axial and coronal reformatting was done. Bone and soft tissue windows were reviewed. FINDINGS: Slight exaggeration of normal cervical lordosis. No CT evidence of definite acute fracture, spinal dislocation, or significant appearing acute subluxation is seen. The visualized paraspinal soft tissues are grossly unremarkable. Mild degenerative changes of the cervical spine include minimal multilevel anterior osteophytosis and moderate bilateral multifocal facet hypertrophy. Bilateral maxillary mucosal sinus disease. IMPRESSION: 1. No definite CT evidence of acute fracture or dislocation of the bony cervical spine. 2. Degenerative change of the cervical spine. SEPSIS Sepsis Screen Date sepsis recognized/suspect: Feb 09, 2025 Time Sepsis recognized/suspect: 0429 Recent Procedure: No On Antibiotic Therapy: No Respiratory Rate >20: No Heart Rate >90: No Temp<36 C (96.8 F) or >38.3 C: No SBP <90 or MAP <65 mmHG: No New Acute Mental Status Change: No Is the patient on CPAP, BIPAP,: No Physician Orders Cervical Without Contrast (02/09/25 04:50) Head Without Contrast (02/09/25 04:50) Maxillofacial Without (02/09/25 04:50) L Knee 2v Xray (02/09/25 04:50) Vital Signs Date Time Temp Pulse Resp B/P (MAP) Pulse Ox O2 Delivery O2 Flow Rate FiO2 02/09/25 07:31 91 22 155/92 (113) 94 02/09/25 05:46 75 14 159/72 (101) 92 02/09/25 05:21 97.7 02/09/25 04:52 65 02/09/25 04:50 68 11 96 Room Air* 0 21 02/09/25 04:50 97.7 68 11 184/85 (118) 96 97.7 02/09/25 04:29 98.3 60 16 165/84 98 98.3 Laboratory Tests Test 02/09/25 08:41 White Blood Count 7.2 10^3/uL (4.4-10.8) Medications Medications Dose Ordered Sig/Nikko Route Start Time Stop Time Status Last Admin Dose Admin Acetaminophen 650 mg ONCE ONCE PO 02/09/25 05:00 02/09/25 05:01 DC 02/09/25 05:21 650 MG Bacitracin 1 applic ONCE ONCE TOP 02/09/25 05:00 02/09/25 05:01 DC 02/09/25 05:21 1 APPLIC Assessment/Plan Assessment/Plan Assessment Right maxillary soft tissue injury and moderate right periorbital and preseptal soft tissue swelling and edema status post mechanical fall Hypertensive urgency History of dementia History of gout History of hyperlipidemia History of hypertension Plan Admit to med surge Antiemetics Pain management Antihypertensives Bilateral lower extremity venous ultrasound Bacitracin UA EKG noted Left knee x-ray noted CT maxillofacial noted CT head noted CT cervical noted Diet Home medications reconciled DVT prophylaxis-SCDs PUD prophylaxis-not indicated history of GERD or GI bleed Discussed plan of care with patient and [place] [id number] Preventive counseling healthy eating habits, physical activity, and regular checkups Plan discussed with: Patient, Other Date of Service: Feb 09, 2025 Billing Provider: PAULO CHACKO Common Visit Codes: 28712-[id number] INP/OBS CARE (HIGH) Secondary Visit Codes: 56560-[id number] COUNSELING IND PAULO CHACKO Feb 09, 2025 09:20
[2025-02-09] MEDS ORDERED: NITROGLYCERIN 0.4 MG SL TAB SL PRN (09:30)
[2025-02-09] MEDS ORDERED: ONDANSETRON HCL 4 MG/2 ML VIAL IV PRN (09:30)
[2025-02-09] MEDS ORDERED: MORPHINE SULFATE INJ 2 MG/ml SYRG IV PRN (09:30)
[2025-02-09] MEDS ORDERED: ACETAMINOPHEN 325 MG TAB PO PRN (09:30)
[2025-02-09] MEDS ORDERED: ALENDRONATE SODIUM 10 MG TAB PO SCH (11:15)
--- NOTE | 2025-02-09 12:15 | DVH ---
Bilateral lower extremity venous duplex Clinical History: edema Comparison: None Findings: Duplex Doppler evaluation of the deep venous systems of both lower extremities from the common femora l veins to the popliteal veins including color Doppler and spectral/pulsed waveform analysis was perf ormed. RIGHT SIDE: The common femoral vein demonstrates appropriate compressibility and waveform variability. There is compressibility/patency of the great saphenous vein at the proximal thigh. The femoral vein demonstrates appropriate compressibility and waveform variability. The deep femoral vein demonstrates appropriate compressibility and waveform variability. The popliteal vein demonstrates appropriate compressibility and waveform variability. There is normal compressibility at the tibioperoneal trunk. LEFT SIDE: The common femoral vein demonstrates appropriate compressibility and waveform variability. There is compressibility/patency of the great saphenous vein at the proximal thigh. The femoral vein demonstrates appropriate compressibility and waveform variability. The deep femoral vein demonstrates appropriate compressibility and waveform variability. The popliteal vein demonstrates appropriate compressibility and waveform variability. There is normal compressibility at the tibioperoneal trunk. IMPRESSION: No right or left femoropopliteal venous thrombosis. If clinical concern/symptoms persist or worsen, short-interval follow-up study is suggested. END IMPRESSION:
[2025-02-09 13:30] VITALS: BP 166/94; PULSE 62; RESP 17; TEMP 99.6; O2SAT 99
[2025-02-09] MEDS: hydrALAZINE HCL 20 MG/ML VL IV PRN (14:17)
[2025-02-09 14:20] VITALS: BP 166/94; PULSE 62; RESP 17; TEMP 99.6; O2SAT 99
[2025-02-09 16:31] VITALS: BP 135/78; PULSE 64; RESP 17; TEMP 99.8; O2SAT 96
[2025-02-09] MEDS: TAMSULOSIN HYDROCHLORIDE 0.4 MG CAP PO SCH (17:33)
[2025-02-09] MEDS: HYDROcodone-ACET 5/325MG TAB PO PRN (17:34)
[2025-02-09] MEDS: ALLOPURINOL 100 MG TAB PO SCH (20:55)
[2025-02-09 21:00] VITALS: BP 101/72; PULSE 69; RESP 18; TEMP 98.1; O2SAT 92
[2025-02-10] VITALS (7 sets, daily range): BP systolic 122–158; BP diastolic 71–94; PULSE 62–91; RESP 18–22; TEMP 97.6–99; O2SAT 94–96
[2025-02-10] MEDS: ALENDRONATE SODIUM 10 MG TAB PO SCH (06:11)
[2025-02-10 08:08] LABS: Hematocrit 43.6 % (41.0-53.0); Hemoglobin 14.8 g/dL (13.5-17.5); Mean Corpuscular Hemoglobin 32.4 pg (28.0-32.0); Mean Corpuscular Volume 95.2 fL (80.0-100.0); Nucleated Red Blood Cells % 0.0 %
[2025-02-10 08:09] LABS: Alanine Aminotransferase 33 U/L (7-40); Alkaline Phosphatase 70 U/L (46-116); Anion Gap 14 (5-15); BUN/Creatinine Ratio 16.2 (10.0-20.0); Blood Urea Nitrogen 12 mg/dL (9-23); Calcium 9.1 mg/dL (8.7-10.4); Carbon Dioxide 26 mmol/L (20-31); Chloride 103 mmol/L (98-107); Glucose 89 mg/dL (74-106); Sodium 143 mmol/L (136-145); Total Protein 6.2 g/dL (5.7-8.2)
[2025-02-10 08:10] LABS: Albumin 4.0 g/dL (3.2-4.8)
[2025-02-10 08:13] LABS: Bilirubin, Total 1.3 mg/dL (0.2-1.0); Potassium 3.3 mmol/L (3.5-5.1)
[2025-02-10] MEDS: MEMANTINE HYDROCHLORIDE 28 MG PO SCH (10:00)
[2025-02-10] MEDS: CHOLECALCIFEROL PO SCH (10:00)
[2025-02-10] MEDS: CALCIUM PO SCH (10:00)
[2025-02-10] MEDS: VITAMIN PO SCH (10:00)
[2025-02-10] MEDS: PHOSPHORUS PO SCH (10:00)
[2025-02-10] MEDS: CALCIUM 500 MG PO SCH (10:00)
[2025-02-10] MEDS: MULTIPLE VITAMINS W/ MINERALS TAB PO SCH (10:54)
[2025-02-10] MEDS: CHOLECALCIFEROL (VITD3) 1,000UNIT=25mCg TAB PO SCH (10:54)
[2025-02-10] MEDS: ASPirin-EC 81 mg tab PO SCH (10:55)
[2025-02-10] MEDS: BENAZEPRIL HCL 10 MG TAB PO SCH (10:56)
[2025-02-10] MEDS: METOPROLOL SUCCINATE XL 50 MG TAB PO SCH (10:56)
--- NOTE | 2025-02-10 14:19 | DVHPN2 ---
Reviewed: Care Plan, H&P, Labs, Medications, Previous Orders, Radiology Changes from previous H/P or p: No Changes Skin: Bruising, Other (Right-sided laceration lateral to the eye) Objective Vitals Vital Signs Date Time Temp Pulse Resp B/P (MAP) Pulse Ox O2 Delivery O2 Flow Rate FiO2 02/10/25 13:00 99.0 87 22 145/82 (103) 96 99.0 02/09/25 20:10 Room Air* 0 21 Intake/Output Intake and Output 02/10/25 07:00 Intake Total 100 ml Output Total 879 ml Balance -779 ml Intake Oral 100 ml Output Urine Total 875 ml Stool Total 4 ml Medications Current Medications Medications Dose Ordered Sig/Nikko Route Start Time Stop Time Status Last Admin Dose Admin Acetaminophen/ Hydrocodone Bitart 1 tab Q4HP PRN PO 02/09/25 09:30 02/10/25 13:18 1 TAB Ondansetron HCl 4 mg Q4HP PRN IV 02/09/25 09:30 Acetaminophen 650 mg Q6HP PRN PO 02/09/25 09:30 Nitroglycerin 0.4 mg Q5MINP PRN SL 02/09/25 09:30 Morphine Sulfate 2 mg Q30M PRN IV 02/09/25 09:30 Allopurinol 100 mg BID PO 02/09/25 22:00 02/10/25 10:55 100 MG Aspirin 81 mg DAILY PO 02/10/25 10:00 02/10/25 10:55 81 MG Benazepril HCl 10 mg DAILY PO 02/10/25 10:00 02/10/25 10:56 10 MG Buspirone HCl 10 mg TID PO 02/09/25 14:00 02/10/25 13:18 10 MG Tamsulosin HCl 0.4 mg QPM PO 02/09/25 18:00 02/09/25 17:33 0.4 MG Patient Own Medication 600 mg DAILY PO 02/10/25 10:00 Patient Own Medication 1 tab DAILY PO 02/10/25 10:00 Patient Own Medication 1 tab DAILY PO 02/10/25 10:00 Patient Own Medication 28 mg DAILY PO 02/10/25 10:00 Metoprolol Succinate 25 mg DAILY PO 02/10/25 10:00 02/10/25 10:56 25 MG Multivitamins/ Minerals 1 tab DAILY PO 02/10/25 10:00 02/10/25 10:54 1 TAB Cholecalciferol 2,000 unit DAILY PO 02/10/25 10:00 02/10/25 10:54 2,000 UNIT Hydralazine HCl 10 mg Q6HP PRN IV 02/09/25 10:30 02/09/25 14:17 10 MG Alendronate Sodium 70 mg Q7D@0700 PO 02/10/25 07:00 02/10/25 06:11 70 MG Laboratory Results Laboratory Tests 02/10/25 05:40 Chemistry Test 02/10/25 05:40 Albumin 4.0 g/dL (3.2-4.8) Calcium Level 9.1 mg/dL (8.7-10.4) Total Protein 6.2 g/dL (5.7-8.2) LFT Test 02/10/25 05:40 Alanine Aminotransferase (ALT) 33 U/L (7-40) Alkaline Phosphatase 70 U/L (46-116) Aspartate Amino Transferase (AST) 78 U/L (13-40) H Total Bilirubin 1.3 mg/dL (0.2-1.0) H Urinalysis Test 02/09/25 08:22 Urine Color Colorless (Yellow) Urine Clarity Clear (Clear) Urine pH 7.0 (5.0-9.0) Urine Specific [place] 1.008 (1.001-1.035) Urine Protein Negative (Negative) Urine Ketones Negative (Negative) Urine Blood Negative /uL (Negative) Urine Nitrite Negative (Negative) Urine Bilirubin Negative (Negative) Urine Urobilinogen Normal mg/dL (Negative) Urine Leukocyte Esterase Negative /uL (Negative) Urine RBC 2 /hpf (0 - 3) Urine Microscopic WBC < 1 /HPF (0-3) Urine Squamous Epithelial Cells None seen /hpf (<5) Urine Bacteria None seen /hpf (None Seen) Urine Glucose Normal mg/dL (Normal) Labs and/or images reviewed: Labs reviewed by me, Image(s) reviewed by me Assessment/Plan Assessment/Plan Right maxillary soft tissue injury and moderate right periorbital and preseptal soft tissue swelling and edema status post mechanical fall Hypertensive urgency History of dementia History of gout History of hyperlipidemia History of hypertension Recurrent falls: Social service consult Time spent 50 minutes Advanced care planning time 20 mts at bedside Plan discussed with: Patient Date of Service: Feb 10, 2025 Billing Provider: ERIKA CLARK MD Common Visit Codes: [id number] INP/OBS CARE(HIGH) Secondary Visit Codes: [id number] CARE PLAN 30 MINUTES ERIKA CLARK MD Feb 10, 2025 14:19
[2025-02-11] VITALS (8 sets, daily range): BP systolic 111–157; BP diastolic 68–90; PULSE 60–113; RESP 15–19; TEMP 98–99.3; O2SAT 92–96
--- NOTE | 2025-02-11 09:43 | ECG ---
[facility] Test Date: 2025-02-10 Test Time: 14:42:26 Pat Name: HERMAN ROBERTS Department: Respiratoy Room: 0246 A Gender: M Construction Driller: : 1935 Requested By: ERIKA CLARK Order Number: [id number] Reading MD: Cayetano Delacruz Measurements Intervals [place] Rate: 76 P: 0 WI: 0 QRS: -17 QRSD: 91 T: 37 QT: 444 QTc: 500 Interpretive Statements Atrial fibrillation RSR' in V1 or V2, probably normal variant LVH by voltage Anterior Q waves, possibly due to LVH Electronically Signed On 02-12-2025 18:29:03 PDT by Cayetano Delacruz Please click the below link to view image of tracing.
--- NOTE | 2025-02-11 09:43 | ECG ---
[facility] Test Date: 2025-02-10 Test Time: 14:43:39 Pat Name: HERMAN ROBERTS Department: Respiratoy Room: 0246 A Gender: M Assistant Director: : 1935 Requested By: ERIKA CLARK Order Number: [id number] Reading MD: Cayetano Delacruz Measurements Intervals [place] Rate: 74 P: 0 MO: 0 QRS: -19 QRSD: 85 T: 59 QT: 440 QTc: 489 Interpretive Statements Atrial fibrillation Borderline left axis deviation RSR' in V1 or V2, probably normal variant Consider anterior infarct Minimal ST depression, lateral leads Electronically Signed On 02-12-2025 18:29:07 PDT by Cayetano Delacruz Please click the below link to view image of tracing.
[2025-02-11 10:11] LABS: Albumin 4.0 g/dL (3.2-4.8); Alkaline Phosphatase 65 U/L (46-116); Anion Gap 13 (5-15); BUN/Creatinine Ratio 20.5 (10.0-20.0); Bilirubin, Total 1.0 mg/dL (0.2-1.0); Blood Urea Nitrogen 17 mg/dL (9-23); Calcium 9.1 mg/dL (8.7-10.4); Carbon Dioxide 25 mmol/L (20-31); Chloride 105 mmol/L (98-107); Cholesterol 130 mg/dL (< 200); Magnesium 2.1 mg/dL (1.6-2.6); Potassium 3.5 mmol/L (3.5-5.1); Sodium 143 mmol/L (136-145); Total Protein 6.1 g/dL (5.7-8.2); Triglycerides 75 mg/dL (< 150)
[2025-02-11 10:13] LABS: Alanine Aminotransferase 43 U/L (7-40); Glucose 109 mg/dL (74-106); HDL Cholesterol 60 mg/dL (40-59)
--- NOTE | 2025-02-11 10:24 | DVHINCON2 ---
Date Seen: Feb 11, [address] Maravilla Reason for Consultation Chest pain History of Present Illness 89-year-old male admitted after mechanical fall. Cardiology was consulted after the patient developed chest pain yesterday. On evaluation today, the patient is alert and oriented to name and place, though has a history of dementia. He currently denies chest pain, palpitations, or shortness of breath. His troponin was noted to be in 100s and trending down. A 12 lead ECG revealed sinus rhythm alternating with atrial fibrillation. His spouse reports he has not previously been diagnosed with atrial fibrillation. She confirms that he is DNR. Patient was previously followed by Dr. Delacruz, but has not seen a cds sales advisor for several years. Past Medical History As stated in HPI Past Surgical History Denies Family History: FH: cancer G8 MOTHER FH: emphysema G8 FATHER Family History Reviewed, non-contributory to the management of this case. Social History The patient lives at home, denies smoking, alcohol or illicit drugs abuse. Allergies: Coded Allergies: NO KNOWN ALLERGIES (Unverified , 11/29/17) Home Meds Active Scripts Naproxen Sodium (ALEVE ARTHRITIS) 220 Mg Tab, 220 MG PO BID for 5 Days, #10 TAB Prov:JOANNE MULTANI MD 06/24/24 Ciprofloxacin Hcl (Ophth) (Cipro Opthalmic Soln) [address], 2 DROP RIGHTEYE Q6HR for 5 Days, #5 ML Prov:BAHMAN LOPEZ MD 02/27/22 Sulfamethoxazole-Trimethoprim (Bactrim) 1 Tab Tab, 1 TAB PO BID for 7 Days, #14 MG Prov:BRYANT ANDERSON MD 10/26/21 Reported Medications Carboxymethylcellulose-Glyceri (REFRESH OPTIVE) 1 Ml Korey, 1 ML OP, DROP 10/21/21 Ciclopirox (CICLOPIROX TREATMENT) 8 % Kit, 8 % EX, KIT 10/21/21 Lactic Acid (Ammonium Lactate) 12 % Lot, 12 % EX, BOTTLE 10/21/21 Alendronate Sodium (Alendronate Sodium) 70 Mg Tab, 70 MG PO Q7D, TAB 10/21/21 Bimatoprost (Lumigan) 0.01 % Camille, 0.01 % OP, ML 10/21/21 Multiple Vitamins W/ Minerals (Pre[employer]se EYE HEALTH FORMUL) Health Cap, 1 CAP OR DAILY, CAP 11/29/17 Calcium Carbonate-Cholecalcife (Calcium 500 +D3 500-600 mg-Unit) 1 Tab Tab, 1 TAB PO DAILY, TAB 11/29/17 Tamsulosin Hcl (Tamsulosin Hcl) 0.4 Mg Cap, 0.4 MG PO QPM for 30 Days, MG 08/27/17 Benazepril Hcl (Benazepril Hcl) 10 Mg Tab, 10 MG PO DAILY for 30 Days, MG 08/27/17 Metoprolol Succinate (Metoprolol Succinate Er) 25 Mg Tab, 25 MG PO DAILY for 30 Days, MG 08/27/17 Aspirin (ASPIRIN 81) 81 Mg Tab, 81 MG OR, TAB 02/19/15 Cholecalciferol (D3) 2,000 Unit Tab, 2000 UNIT PO, TAB 02/19/15 Calcium & Phosphorus W/ Vitami (CALCIUM) Tab, 600 MG PO DAILY, TAB 02/19/15 Multiple Vitamins W/ Minerals (MULTI COMPLETE) Complete Cap, 1 OR, CAP 02/19/15 Memantine Hydrochloride (NAMENDA XR) 28 Mg Cap, 28 MG OR DAILY, CAP 02/19/15 Allopurinol (ZYLOPRIM TABLET) 100 Mg Tb, 1 TAB PO BID, #30 TAB 5 Refills 02/19/15 Buspirone Hcl (Buspar) 10 Mg Tab, 10 MG PO TID, TAB 02/19/15 Ezetimibe-Simvastatin (Vytorin) 1 Tab Tab, 1 TAB PO DAILY, #30 TAB 5 Refills 02/19/15 Potassium Chloride (KLOR-CON TABLET) 20 Meq Tb, 1 TAB PO DAILY, #90 TAB 1 Refill 02/19/15 Review of Systems Constitutional: No symptom reported Ears, Nose, & Throat: No symptom reported Eyes: No symptom reported Neurological: No symptoms reported Pulmonary/Respiratory: No symptom reported Cardiovascular: Chest pain, now resolved Gastrointestinal: No symptom reported Genitourinary: No symptom reported Musculoskeletal: No symptom reported Skin: No symptom reported Psychiatric: No symptom reported Endocrine: No symptom reported Hemotologic/Lymphatic: No symptom reported Vital Signs Vital Signs Date Time Temp Pulse Resp B/P (MAP) Pulse Ox O2 Delivery O2 Flow Rate FiO2 02/11/25 09:00 98.0 65 15 157/90 (112) 95 98.0 02/10/25 20:10 Room Air* 0 21 Physical Exam INITIAL VITAL SIGNS: Reviewed by me GENERAL: Alert and interactive. No acute distress. HEAD: Head is normocephalic and atraumatic. EYES: EOMI, PERRL. No scleral icterus. No conjunctival injection. ENT: Moist mucous membranes. NECK: Supple, No masses, Full range of motion. RESPIRATORY: No tachypnea. Clear breath sounds bilaterally. No wheezing, rales, rhonchi. CV: . Irregularly irregular rhythm. GI/: Active bowel sounds, soft, nondistended, nontender. No guarding. No rebound. No masses. No CVA tenderness. INTEGUMENTARY: Warm and dry. No obvious rashes. NEUROLOGIC: Alert and oriented. Face is symmetric. Speech is normal. Moves all extremities equally. Labs/Diagnostic Data Labs Test 02/11/25 09:09 02/10/25 05:40 02/09/25 08:22 Range/Units Sodium Level 143 136-145 mmol/L Potassium Level 3.5 3.5-5.1 mmol/L Chloride Level 105 98-107 mmol/L Carbon Dioxide Level 25 20-31 mmol/L Anion Gap 13 5-15 Blood Urea Nitrogen 17 9-23 mg/dL Creatinine 0.83 0.700-1.30 mg/dL Glomerular Filtration Rate Calc 85 >90 mL/min BUN/Creatinine Ratio 20.5 H 10.0-20.0 Serum Glucose 109 H 74-106 mg/dL Calcium Level 9.1 8.7-10.4 mg/dL Magnesium Level 2.1 1.6-2.6 mg/dL Total Bilirubin 1.0 0.2-1.0 mg/dL Aspartate Amino Transferase (AST) 105 H 13-40 U/L Alanine Aminotransferase (ALT) 43 H 7-40 U/L Alkaline Phosphatase 65 46-116 U/L Troponin I High Sensitivity 92 *H </=54 ng/L Total Protein 6.1 5.7-8.2 g/dL Albumin 4.0 3.2-4.8 g/dL Triglycerides Level 75 < 150 mg/dL Cholesterol Level 130 < 200 mg/dL LDL Cholesterol 55 < 100 mg/dL HDL Cholesterol 60 H 40-59 mg/dL White Blood Count 8.6 4.4-10.8 10^3/uL Red Blood Count 4.58 4.5-5.90 10^6/uL Hemoglobin 14.8 13.5-17.5 g/dL Hematocrit 43.6 41.0-53.0 % Mean Corpuscular Volume 95.2 80.0-100.0 fL Mean Corpuscular Hemoglobin 32.4 H 28.0-32.0 pg Mean Corpuscular Hemoglobin Concent 34.0 32.0-36.0 g/dL Red Cell Distribution Width 14.6 H 11.8-14.3 % Platelet Count 176 140-450 10^3/uL Mean Platelet Volume 8.4 6.9-10.8 fL Neutrophils (%) (Auto) 74.0 37.0-80.0 % Lymphocytes (%) (Auto) 15.8 10.0-50.0 % Monocytes (%) (Auto) 9.8 0.0-12.0 % Eosinophils (%) (Auto) 0.1 0.0-7.0 % Basophils (%) (Auto) 0.3 0.0-2.0 % Neutrophils # (Auto) 6.4 1.6-8.6 10 ^3/uL Lymphocytes # (Auto) 1.4 0.4-5.4 10 ^3/uL Monocytes # (Auto) 0.8 0-1.3 10 ^3/uL Eosinophils # (Auto) 0 0-0.8 10 ^3/uL Basophils # (Auto) 0 0-0.2 10 ^3/uL Nucleated Red Blood Cells 0.0 % Urine Color Colorless Yellow Urine Clarity Clear Clear Urine pH 7.0 5.0-9.0 Urine Specific [place] 1.008 1.001-1.035 Urine Protein Negative Negative Urine Ketones Negative Negative Urine Blood Negative Negative /uL Urine Nitrite Negative Negative Urine Bilirubin Negative Negative Urine Urobilinogen Normal Negative mg/dL Urine Leukocyte Esterase Negative Negative /uL Urine RBC 2 0 - 3 /hpf Urine Microscopic WBC < 1 0-3 /HPF Urine Squamous Epithelial Cells None seen <5 /hpf Urine Bacteria None seen None Seen /hpf Urine Glucose Normal Normal mg/dL Assessment s/p mechanical fall with facial injury Paroxysmal AFib, ?new onset. NSTEMI - likely non cardiac, likely due to above Hypertension DNR status Plan/Recommendation (Dr. Bruce ): * Continue telemetry monitoring for arrhythmias * Monitor troponin trend and EKG * Rate control with beta [place] * No anticoagulation at this time given advanced age, dementia, fall risk, and confirmed DNR status * Supportive care and coordination with primary team * Outpatient cardiology follow-up as appropriate, though patient has not been seen for several years * Goals of care reaffirmed with spouse DNR This medical document was created using an electronic medical record system with voice recognition software and computerized dictation system. Although this document has been carefully reviewed, there might still be some phonetic and typographical errors. Occasional wrong-word or ``sound-alike substitutions may have occurred due to the inherent limitations of voice recognition software. These areas are purely typographical due to imperfections of the software programs and do not reflect any compromise in the patient's medical care. Please read the chart carefully and recognize, using context, where these substitutions have occurred. Plan discussed with: Patient Plan discussed with: Patient, Spouse NYHA Physical activity limitations: NA Date of Service: Feb 11, 2025 Billing Provider: LEMUEL BRUCE MD Cardiology Common Codes: CONSULT ONLY Cardiology Consultation Codes: 60816-[id number] CONSULT <45MIN EDWIN WASSERMAN [employer] Feb 11, 2025 10:24
--- NOTE | 2025-02-11 11:19 | DVHPN2 ---
Reviewed: Care Plan, H&P, Labs, Medications, Previous Orders, Radiology Changes from previous H/P or p: No Changes Skin: Bruising, Other (Right-sided laceration lateral to the eye) Objective Vitals Vital Signs Date Time Temp Pulse Resp B/P (MAP) Pulse Ox O2 Delivery O2 Flow Rate FiO2 02/11/25 09:00 98.0 65 15 157/90 (112) 95 98.0 02/10/25 20:10 Room Air* 0 21 Intake/Output Intake and Output 02/11/25 07:00 Intake Total 240 ml Balance 240 ml Intake Oral 240 ml # Voids 3 Medications Current Medications Medications Dose Ordered Sig/Nikko Route Start Time Stop Time Status Last Admin Dose Admin Acetaminophen/ Hydrocodone Bitart 1 tab Q4HP PRN PO 02/09/25 09:30 02/11/25 08:39 1 TAB Ondansetron HCl 4 mg Q4HP PRN IV 02/09/25 09:30 Acetaminophen 650 mg Q6HP PRN PO 02/09/25 09:30 Nitroglycerin 0.4 mg Q5MINP PRN SL 02/09/25 09:30 Morphine Sulfate 2 mg Q30M PRN IV 02/09/25 09:30 Allopurinol 100 mg BID PO 02/09/25 22:00 02/11/25 08:41 100 MG Aspirin 81 mg DAILY PO 02/10/25 10:00 02/11/25 08:43 81 MG Benazepril HCl 10 mg DAILY PO 02/10/25 10:00 02/11/25 08:41 10 MG Buspirone HCl 10 mg TID PO 02/09/25 14:00 02/11/25 05:50 10 MG Tamsulosin HCl 0.4 mg QPM PO 02/09/25 18:00 02/10/25 17:58 0.4 MG Patient Own Medication 600 mg DAILY PO 02/10/25 10:00 Patient Own Medication 1 tab DAILY PO 02/10/25 10:00 Patient Own Medication 1 tab DAILY PO 02/10/25 10:00 Patient Own Medication 28 mg DAILY PO 02/10/25 10:00 Metoprolol Succinate 25 mg DAILY PO 02/10/25 10:00 02/11/25 08:42 25 MG Multivitamins/ Minerals 1 tab DAILY PO 02/10/25 10:00 02/11/25 08:39 1 TAB Cholecalciferol 2,000 unit DAILY PO 02/10/25 10:00 02/11/25 08:43 2,000 UNIT Hydralazine HCl 10 mg Q6HP PRN IV 02/09/25 10:30 02/09/25 14:17 10 MG Alendronate Sodium 70 mg Q7D@0700 PO 02/10/25 07:00 02/10/25 06:11 70 MG Laboratory Results Laboratory Tests 02/10/25 05:40 02/11/25 09:09 Chemistry Test 02/11/25 09:09 Albumin 4.0 g/dL (3.2-4.8) Calcium Level 9.1 mg/dL (8.7-10.4) Magnesium Level 2.1 mg/dL (1.6-2.6) Total Protein 6.1 g/dL (5.7-8.2) Lipid panel Test 02/11/25 09:09 Cholesterol Level 130 mg/dL (< 200) HDL Cholesterol 60 mg/dL (40-59) H Triglycerides Level 75 mg/dL (< 150) LFT Test 02/11/25 09:09 Alanine Aminotransferase (ALT) 43 U/L (7-40) H Alkaline Phosphatase 65 U/L (46-116) Aspartate Amino Transferase (AST) 105 U/L (13-40) H Total Bilirubin 1.0 mg/dL (0.2-1.0) HgA1c, TSH Test 02/11/25 09:09 Thyroid Stimulating Hormone (TSH) 0.83 uIU/mL (0.55-4.78) Urinalysis Test 02/09/25 08:22 Urine Color Colorless (Yellow) Urine Clarity Clear (Clear) Urine pH 7.0 (5.0-9.0) Urine Specific [place] 1.008 (1.001-1.035) Urine Protein Negative (Negative) Urine Ketones Negative (Negative) Urine Blood Negative /uL (Negative) Urine Nitrite Negative (Negative) Urine Bilirubin Negative (Negative) Urine Urobilinogen Normal mg/dL (Negative) Urine Leukocyte Esterase Negative /uL (Negative) Urine RBC 2 /hpf (0 - 3) Urine Microscopic WBC < 1 /HPF (0-3) Urine Squamous Epithelial Cells None seen /hpf (<5) Urine Bacteria None seen /hpf (None Seen) Urine Glucose Normal mg/dL (Normal) Labs and/or images reviewed: Labs reviewed by me, Image(s) reviewed by me Assessment/Plan Assessment/Plan Right maxillary soft tissue injury and moderate right periorbital and preseptal soft tissue swelling and edema status post mechanical fall Hypertensive urgency History of dementia History of gout History of hyperlipidemia History of hypertension Recurrent falls: Social service consult Time spent 50 minutes Advanced care planning time 20 mts at bedside Patient made DNR unable to take care of the patient at home [place] [facility] Plan discussed with: Patient My Orders Orders - ERIKA CLARK MD Procedure Category Date Status Time * Finance Teacher CONS 02/10/25 Transmitted Consult Pt Request For Service PT 02/10/25 Logged 14:21 * Cardiology Consult CONS 02/10/25 Transmitted 15:06 Transfer Orders XFER 02/10/25 Transmitted 15:06 Electrocardigram EKG 02/10/25 Logged 16:06 Apply Z-Guard JUSTIN 02/10/25 In Process 10:44 Code Status CODE 02/11/25 Transmitted 10:31 Date of Service: Feb 11, 2025 Billing Provider: ERIKA CLARK MD Common Visit Codes: [id number] INP/OBS CARE(HIGH) ERIKA CLARK MD Feb 11, 2025 11:19
[2025-02-11] MEDS: LORazepam 2MG/ML-1ML VIAL IM ONE (22:59)
--- NOTE | 2025-02-11 22:59 | DVHINCON2 ---
Date Seen: Feb 11, [address] Maravilla Reason for Consultation Chest pain History of Present Illness This is an 89-year-old male with a PMH of Dementia, Gout, High Lipids, HTN who presented to the ED with complaints of a mechanical fall. Cardiology was consulted after the patient developed chest pain yesterday. On evaluation today, the patient is alert and oriented to name and place, though has a history of dementia. He currently denies chest pain, palpitations, or shortness of breath. His troponin was noted to be in 100s and trending down. A 12 lead ECG revealed sinus rhythm alternating with atrial fibrillation. His spouse reports he has not previously been diagnosed with atrial fibrillation. Patient's spouse confirms that he is DNR. Patient was previously followed by Dr. Delacruz, but has not seen a supervisor irrigation for several years. CT C-Spine showed degenerative change of the cervical spine. Past Medical History As stated in HPI Past Surgical History Denies Family History: FH: cancer G8 MOTHER FH: emphysema G8 FATHER Allergies: Coded Allergies: NO KNOWN ALLERGIES (Unverified , 11/29/17) Home Meds Active Scripts Naproxen Sodium (ALEVE ARTHRITIS) 220 Mg Tab, 220 MG PO BID for 5 Days, #10 TAB Prov:JOANNE MULTANI MD 06/24/24 Ciprofloxacin Hcl (Ophth) (Cipro Opthalmic Soln) [address], 2 DROP RIGHTEYE Q6HR for 5 Days, #5 ML Prov:BAHMAN LOPEZ MD 02/27/22 Sulfamethoxazole-Trimethoprim (Bactrim) 1 Tab Tab, 1 TAB PO BID for 7 Days, #14 MG Prov:BRYANT ANDERSON MD 10/26/21 Reported Medications Carboxymethylcellulose-Glyceri (REFRESH OPTIVE) 1 Ml Korey, 1 ML OP, DROP 10/21/21 Ciclopirox (CICLOPIROX TREATMENT) 8 % Kit, 8 % EX, KIT 10/21/21 Lactic Acid (Ammonium Lactate) 12 % Lot, 12 % EX, BOTTLE 10/21/21 Alendronate Sodium (Alendronate Sodium) 70 Mg Tab, 70 MG PO Q7D, TAB 10/21/21 Bimatoprost (Lumigan) 0.01 % Camille, 0.01 % OP, ML 10/21/21 Multiple Vitamins W/ Minerals ([employer] EYE HEALTH FORMUL) Health Cap, 1 CAP OR DAILY, CAP 11/29/17 Calcium Carbonate-Cholecalcife (Calcium 500 +D3 500-600 mg-Unit) 1 Tab Tab, 1 TAB PO DAILY, TAB 11/29/17 Tamsulosin Hcl (Tamsulosin Hcl) 0.4 Mg Cap, 0.4 MG PO QPM for 30 Days, MG 08/27/17 Benazepril Hcl (Benazepril Hcl) 10 Mg Tab, 10 MG PO DAILY for 30 Days, MG 08/27/17 Metoprolol Succinate (Metoprolol Succinate Er) 25 Mg Tab, 25 MG PO DAILY for 30 Days, MG 08/27/17 Aspirin (ASPIRIN 81) 81 Mg Tab, 81 MG OR, TAB 02/19/15 Cholecalciferol (D3) 2,000 Unit Tab, 2000 UNIT PO, TAB 02/19/15 Calcium & Phosphorus W/ Vitami (CALCIUM) Tab, 600 MG PO DAILY, TAB 02/19/15 Multiple Vitamins W/ Minerals (MULTI COMPLETE) Complete Cap, 1 OR, CAP 02/19/15 Memantine Hydrochloride (NAMENDA XR) 28 Mg Cap, 28 MG OR DAILY, CAP 02/19/15 Allopurinol (ZYLOPRIM TABLET) 100 Mg Tb, 1 TAB PO BID, #30 TAB 5 Refills 02/19/15 Buspirone Hcl (Buspar) 10 Mg Tab, 10 MG PO TID, TAB 02/19/15 Ezetimibe-Simvastatin (Vytorin) 1 Tab Tab, 1 TAB PO DAILY, #30 TAB 5 Refills 02/19/15 Potassium Chloride (KLOR-CON TABLET) 20 Meq Tb, 1 TAB PO DAILY, #90 TAB 1 Refill 02/19/15 Review of Systems Constitutional: No symptom reported Ears, Nose, & Throat: No symptom reported Eyes: No symptom reported Neurological: No symptoms reported Pulmonary/Respiratory: No symptom reported Cardiovascular: Chest pain, now resolved Gastrointestinal: No symptom reported Genitourinary: No symptom reported Musculoskeletal: No symptom reported Skin: No symptom reported Psychiatric: No symptom reported Endocrine: No symptom reported Hemotologic/Lymphatic: No symptom reported Vital Signs Vital Signs Date Time Temp Pulse Resp B/P (MAP) Pulse Ox O2 Delivery O2 Flow Rate FiO2 02/11/25 13:00 98.2 64 16 140/70 (93) 96 98.2 9/21/25 08:00 Room Air* 0 21 Physical Exam GENERAL: Alert and oriented x 3. No acute distress. EYES: PERRL, EOMI. Anicteric. HENT: Moist mucous membranes. LUNGS: Clear to auscultation bilaterally. CARDIOVASCULAR: Irregular rate and rhythm. ABDOMEN: Soft, nontender and nondistended. EXTREMITIES: No edema. NEUROLOGIC: No focal neurological deficits. SKIN: Warm, dry. Labs/Diagnostic Data Labs Test 02/11/25 09:09 02/10/25 05:40 02/09/25 08:22 Range/Units Sodium Level 143 136-145 mmol/L Potassium Level 3.5 3.5-5.1 mmol/L Chloride Level 105 98-107 mmol/L Carbon Dioxide Level 25 20-31 mmol/L Anion Gap 13 5-15 Blood Urea Nitrogen 17 9-23 mg/dL Creatinine 0.83 0.700-1.30 mg/dL Glomerular Filtration Rate Calc 85 >90 mL/min BUN/Creatinine Ratio 20.5 H 10.0-20.0 Serum Glucose 109 H 74-106 mg/dL Calcium Level 9.1 8.7-10.4 mg/dL Magnesium Level 2.1 1.6-2.6 mg/dL Total Bilirubin 1.0 0.2-1.0 mg/dL Aspartate Amino Transferase (AST) 105 H 13-40 U/L Alanine Aminotransferase (ALT) 43 H 7-40 U/L Alkaline Phosphatase 65 46-116 U/L Troponin I High Sensitivity 92 *H </=54 ng/L Total Protein 6.1 5.7-8.2 g/dL Albumin 4.0 3.2-4.8 g/dL Triglycerides Level 75 < 150 mg/dL Cholesterol Level 130 < 200 mg/dL LDL Cholesterol 55 < 100 mg/dL HDL Cholesterol 60 H 40-59 mg/dL Thyroid Stimulating Hormone (TSH) 0.83 0.55-4.78 uIU/mL White Blood Count 8.6 4.4-10.8 10^3/uL Red Blood Count 4.58 4.5-5.90 10^6/uL Hemoglobin 14.8 13.5-17.5 g/dL Hematocrit 43.6 41.0-53.0 % Mean Corpuscular Volume 95.2 80.0-100.0 fL Mean Corpuscular Hemoglobin 32.4 H 28.0-32.0 pg Mean Corpuscular Hemoglobin Concent 34.0 32.0-36.0 g/dL Red Cell Distribution Width 14.6 H 11.8-14.3 % Platelet Count 176 140-450 10^3/uL Mean Platelet Volume 8.4 6.9-10.8 fL Neutrophils (%) (Auto) 74.0 37.0-80.0 % Lymphocytes (%) (Auto) 15.8 10.0-50.0 % Monocytes (%) (Auto) 9.8 0.0-12.0 % Eosinophils (%) (Auto) 0.1 0.0-7.0 % Basophils (%) (Auto) 0.3 0.0-2.0 % Neutrophils # (Auto) 6.4 1.6-8.6 10 ^3/uL Lymphocytes # (Auto) 1.4 0.4-5.4 10 ^3/uL Monocytes # (Auto) 0.8 0-1.3 10 ^3/uL Eosinophils # (Auto) 0 0-0.8 10 ^3/uL Basophils # (Auto) 0 0-0.2 10 ^3/uL Nucleated Red Blood Cells 0.0 % Urine Color Colorless Yellow Urine Clarity Clear Clear Urine pH 7.0 5.0-9.0 Urine Specific [place] 1.008 1.001-1.035 Urine Protein Negative Negative Urine Ketones Negative Negative Urine Blood Negative Negative /uL Urine Nitrite Negative Negative Urine Bilirubin Negative Negative Urine Urobilinogen Normal Negative mg/dL Urine Leukocyte Esterase Negative Negative /uL Urine RBC 2 0 - 3 /hpf Urine Microscopic WBC < 1 0-3 /HPF Urine Squamous Epithelial Cells None seen <5 /hpf Urine Bacteria None seen None Seen /hpf Urine Glucose Normal Normal mg/dL Assessment S/p mechanical fall with facial injury. Paroxysmal AFib, ?new onset. NSTEMI - likely non cardiac, likely due to above. Hypertension. DNR status. Plan/Recommendation I agree with your ongoing assessment and care of plan. Patient has been seen by Sheeba Wilder NP on my behalf, her and I discussed the plan with the patient. Continue telemetry monitoring for arrhythmias. Monitor troponin trend and EKG. Rate control with beta [place]. No anticoagulation at this time given advanced age, dementia, fall risk, and confirmed DNR status. Supportive care and coordination with primary team. Outpatient cardiology follow up as appropriate, though patient has not been seen for several years. Goals of care reaffirmed with spouse DNR. Additional plan as per the hospital course. Plan discussed with: Patient NYHA Physical activity limitations: NA Date of Service: Feb 11, 2025 Billing Provider: LEMUEL ISLAS MD Cardiology Common Codes: 06756-[id number] INP/OBS CARE (High) Cardiology Consultation Codes: 95042-[id number] CONSULT <45MIN LEMUEL ISLAS MD Feb 11, 2025 14:50
[2025-02-12] VITALS (9 sets, daily range): BP systolic 98–138; BP diastolic 60–77; PULSE 80–98; RESP 14–20; TEMP 97.3–98; O2SAT 93–99
--- NOTE | 2025-02-12 14:16 | DVHDS2 ---
Discharge Summary Date of Admission Feb 09, 2025 at 09:18 Date of Discharge: Feb 12, 2025 Admitting Diagnosis Recurrent falls at home Wounds: Right periorbital bruise Labs/Diagnostic Data: Laboratory Results Test 02/11/25 09:09 02/10/25 05:40 02/09/25 08:22 Sodium Level 143 mmol/L (136-145) Potassium Level 3.5 mmol/L (3.5-5.1) Chloride Level 105 mmol/L (98-107) Carbon Dioxide Level 25 mmol/L (20-31) Anion Gap 13 (5-15) Blood Urea Nitrogen 17 mg/dL (9-23) Creatinine 0.83 mg/dL (0.700-1.30) Glomerular Filtration Rate Calc 85 mL/min (>90) BUN/Creatinine Ratio 20.5 (10.0-20.0) Serum Glucose 109 mg/dL (74-106) Calcium Level 9.1 mg/dL (8.7-10.4) Magnesium Level 2.1 mg/dL (1.6-2.6) Total Bilirubin 1.0 mg/dL (0.2-1.0) Aspartate Amino Transferase (AST) 105 U/L (13-40) Alanine Aminotransferase (ALT) 43 U/L (7-40) Alkaline Phosphatase 65 U/L (46-116) Troponin I High Sensitivity 92 ng/L (</=54) Total Protein 6.1 g/dL (5.7-8.2) Albumin 4.0 g/dL (3.2-4.8) Triglycerides Level 75 mg/dL (< 150) Cholesterol Level 130 mg/dL (< 200) LDL Cholesterol 55 mg/dL (< 100) HDL Cholesterol 60 mg/dL (40-59) Thyroid Stimulating Hormone (TSH) 0.83 uIU/mL (0.55-4.78) White Blood Count 8.6 10^3/uL (4.4-10.8) Red Blood Count 4.58 10^6/uL (4.5-5.90) Hemoglobin 14.8 g/dL (13.5-17.5) Hematocrit 43.6 % (41.0-53.0) Mean Corpuscular Volume 95.2 fL (80.0-100.0) Mean Corpuscular Hemoglobin 32.4 pg (28.0-32.0) Mean Corpuscular Hemoglobin Concent 34.0 g/dL (32.0-36.0) Red Cell Distribution Width 14.6 % (11.8-14.3) Platelet Count 176 10^3/uL (140-450) Mean Platelet Volume 8.4 fL (6.9-10.8) Neutrophils (%) (Auto) 74.0 % (37.0-80.0) Lymphocytes (%) (Auto) 15.8 % (10.0-50.0) Monocytes (%) (Auto) 9.8 % (0.0-12.0) Eosinophils (%) (Auto) 0.1 % (0.0-7.0) Basophils (%) (Auto) 0.3 % (0.0-2.0) Neutrophils # (Auto) 6.4 10 ^3/uL (1.6-8.6) Lymphocytes # (Auto) 1.4 10 ^3/uL (0.4-5.4) Monocytes # (Auto) 0.8 10 ^3/uL (0-1.3) Eosinophils # (Auto) 0 10 ^3/uL (0-0.8) Basophils # (Auto) 0 10 ^3/uL (0-0.2) Nucleated Red Blood Cells 0.0 % Urine Color Colorless (Yellow) Urine Clarity Clear (Clear) Urine pH 7.0 (5.0-9.0) Urine Specific [place] 1.008 (1.001-1.035) Urine Protein Negative (Negative) Urine Ketones Negative (Negative) Urine Blood Negative /uL (Negative) Urine Nitrite Negative (Negative) Urine Bilirubin Negative (Negative) Urine Urobilinogen Normal mg/dL (Negative) Urine Leukocyte Esterase Negative /uL (Negative) Urine RBC 2 /hpf (0 - 3) Urine Microscopic WBC < 1 /HPF (0-3) Urine Squamous Epithelial Cells None seen /hpf (<5) Urine Bacteria None seen /hpf (None Seen) Urine Glucose Normal mg/dL (Normal) Other Laboratory Tests 02/11/25 09:09 02/10/25 05:40 Brief Hx & Hospital Course: 89-year-old male with a history of dementia gout hypertension hyperlipidemia time by family to the ER after he had a fall at home complaining of pain and swelling over the right cheek and the right eyebrow. Patient has had a moderate bruising of the right eye. Maxillofacial CT showed periorbital and preseptal soft tissue swelling and edema. Patient has had high blood pressure which was treated. Patient received physical therapy who recommended care home facility placement for rehab the agrees and the patient is being discharged to care home facility for physical therapy fall prevention Consults/Reason for consult None Operations or Procedures Maxillofacial CT CT head Condition at Discharge: Fair Final Diagnosis/Problems List Right maxillary soft tissue injury and moderate right periorbital and preseptal soft tissue swelling and edema status post mechanical fall Hypertensive urgency History of dementia History of gout History of hyperlipidemia History of hypertension Recurrent falls Discharge Disposition: Retirement Facility Discharge Instruct/Medications Diet: Cardiac 2g Na,low cholest Activity: Light activity Follow Up/Referral: Follow up with the longterm Dr Medications: see list Scheduled Alendronate Sodium (Alendronate Sodium), 70 MG PO Q7D, (Reported) Allopurinol (Zyloprim Tablet), 1 TAB PO BID, (Reported) Benazepril Hcl (Benazepril Hcl), 10 MG PO DAILY, (Reported) Buspirone Hcl (Buspar), 10 MG PO TID, (Reported) Calcium & Phosphorus W/ Vitami (Calcium), 600 MG PO DAILY, (Reported) Calcium Carbonate-Cholecalcife (Calcium 500 +D3 500-600 mg-Unit), 1 TAB PO DAILY, (Reported) Ciprofloxacin Hcl (Ophth) (Cipro Opthalmic Soln), 2 DROP RIGHTEYE Q6HR Ezetimibe-Simvastatin (Vytorin), 1 TAB PO DAILY, (Reported) Memantine Hydrochloride (Namenda Xr), 28 MG OR DAILY, (Reported) Metoprolol Succinate (Metoprolol Succinate Er), 25 MG PO DAILY, (Reported) Multiple Vitamins W/ Minerals (Ocuvite Eye Health Formul), 1 CAP OR DAILY, (Reported) Naproxen Sodium (Aleve Arthritis), 220 MG PO BID Potassium Chloride (Klor-Con Tablet), 1 TAB PO DAILY, (Reported) Sulfamethoxazole-Trimethoprim (Bactrim), 1 TAB PO BID Tamsulosin Hcl (Tamsulosin Hcl), 0.4 MG PO QPM, (Reported) Miscellaneous Medications Aspirin (Aspirin 81), 81 MG OR, (Reported) Bimatoprost (Lumigan), 0.01 % OP, (Reported) Carboxymethylcellulose-Glyceri (Refresh Optive), 1 ML OP, (Reported) Cholecalciferol (D3), 2,000 UNIT PO, (Reported) Ciclopirox (Ciclopirox Treatment), 8 % EX, (Reported) Lactic Acid (Ammonium Lactate), 12 % EX, (Reported) Multiple Vitamins W/ Minerals (Multi Complete), 1 OR, (Reported) 35 (Time taken for discharge summary 35 minutes) Discharge Statement: "Patient was advised to return to the ER or call 911 if any headaches, dizziness, shortness of breath, chest pain, abdominal pain, bleeding, fevers, or worsening of medical condition. Patient was counseled about treatment plan, medications, possible side effects, patientverbalized understanding. All questions were answered to the best of my ability. This discharge took greater then 30 minutes in planning, reviewing documentation, counseling the patient, and discussing with other team members." ASSESSMENT ASSESSMENT Hospital Course Improved Assessment Right maxillary soft tissue injury and moderate right periorbital and preseptal soft tissue swelling and edema status post mechanical fall Hypertensive urgency History of dementia History of gout History of hyperlipidemia History of hypertension Recurrent falls Date of Service: Feb 12, 2025 Billing Provider: ERIKA CLARK MD Common Visit Codes: [id number] DISCH DAY >30min ERIKA CLARK MD Feb 12, 2025 14:16
[2025-02-12 18:23] LABS: COVID19 ANTIGEN SOFIA FIA NEGATIVE (NEGATIVE)
--- NOTE | 2025-02-12 23:57 | DVHPN2 ---
Progress Note - Dictate Date Seen: Feb 12, 2025 Medical Necessity Reason Pt with a Central, PICC or Fol: No Subjective Patient was seen and evaluated in follow up. No overnight events. The patient is resting in bed. Covid is negative. Patient is pending SNF placement. vital signs Vital Sign Date Time Temp Pulse Resp B/P (MAP) Pulse Ox O2 Delivery O2 Flow Rate FiO2 02/12/25 20:29 97.8 84 16 138/73 (94) 95 97.8 02/12/25 08:10 Room Air* 0 21 Total Intake and Output 02/11/25 02/11/25 02/12/25 15:00 23:00 07:00 Intake Total 500 ml 80 ml Output Total 150 ml Balance 350 ml 80 ml medications Current Medications Medications Dose Ordered Sig/Nikko Route Start Time Stop Time Status Last Admin Dose Admin Acetaminophen/ Hydrocodone Bitart 1 tab Q4HP PRN PO 02/09/25 09:30 02/12/25 04:43 1 TAB Ondansetron HCl 4 mg Q4HP PRN IV 02/09/25 09:30 Acetaminophen 650 mg Q6HP PRN PO 02/09/25 09:30 Nitroglycerin 0.4 mg Q5MINP PRN SL 02/09/25 09:30 Morphine Sulfate 2 mg Q30M PRN IV 02/09/25 09:30 Allopurinol 100 mg BID PO 02/09/25 22:00 02/12/25 21:11 100 MG Aspirin 81 mg DAILY PO 02/10/25 10:00 02/12/25 10:01 81 MG Benazepril HCl 10 mg DAILY PO 02/10/25 10:00 02/12/25 10:06 10 MG Buspirone HCl 10 mg TID PO 02/09/25 14:00 02/12/25 21:11 10 MG Tamsulosin HCl 0.4 mg QPM PO 02/09/25 18:00 02/12/25 18:04 0.4 MG Patient Own Medication 600 mg DAILY PO 02/10/25 10:00 Patient Own Medication 1 tab DAILY PO 02/10/25 10:00 Patient Own Medication 1 tab DAILY PO 02/10/25 10:00 02/12/25 14:16 1 TAB Patient Own Medication 28 mg DAILY PO 02/10/25 10:00 02/12/25 14:16 28 MG Metoprolol Succinate 25 mg DAILY PO 02/10/25 10:00 02/12/25 10:06 25 MG Multivitamins/ Minerals 1 tab DAILY PO 02/10/25 10:00 02/12/25 10:01 1 TAB Cholecalciferol 2,000 unit DAILY PO 02/10/25 10:00 02/12/25 10:07 2,000 UNIT Hydralazine HCl 10 mg Q6HP PRN IV 02/09/25 10:30 02/09/25 14:17 10 MG Alendronate Sodium 70 mg Q7D@0700 PO 02/10/25 07:00 02/10/25 06:11 70 MG objective GENERAL: Alert and oriented x 3. No acute distress. EYES: PERRL, EOMI. Anicteric. HENT: Moist mucous membranes. LUNGS: Clear to auscultation bilaterally. CARDIOVASCULAR: Irregular rate and rhythm. ABDOMEN: Soft, nontender and nondistended. EXTREMITIES: No edema. NEUROLOGIC: No focal neurological deficits. SKIN: Warm, dry. laboratory and microbiology Laboratory Tests 02/11/25 09:09 02/10/25 05:40 Test 02/11/25 09:09 Range/Units Serum Glucose 109 H 74-106 mg/dL Problem List S/p mechanical fall with facial injury. Paroxysmal AFib, ?new onset. NSTEMI - likely non cardiac, likely due to above. Hypertension. DNR status. Assessment/Plan Continued all current supportive medical care. Morphine and [place] for pain management. Aspirin, Metoprolol. IV Hydralazine for SBP >150. Nitro SL. Additional plan as per the hospital course. Dietary Evaluation Review Recommendations by RD: Protein Supplementation Comments: 1) Initiate Ensure High Protein bid 2) Encourage optimal PO intake 3) Follow-up with cardiology and neurology 4) Continue to monitor I&O, labs, and skin integrity Expected Outcomes/Goals: 1) appetite and labs to improve 2) wounds to improve 3) f/u in 3-5 days Plan discussed with: Patient LEMUEL ISLAS MD Feb 12, 2025 23:57
[2025-02-13] VITALS (8 sets, daily range): BP systolic 110–166; BP diastolic 63–85; PULSE 60–96; RESP 16–18; TEMP 97.8–98.2; O2SAT 94–98
--- NOTE | 2025-02-13 10:54 | DVHPN2 ---
Reviewed: Care Plan, H&P, Labs, Medications, Previous Orders, Radiology Changes from previous H/P or p: No Changes Skin: Bruising, Other (Right-sided laceration lateral to the eye) Objective Vitals Vital Signs Date Time Temp Pulse Resp B/P (MAP) Pulse Ox O2 Delivery O2 Flow Rate FiO2 02/13/25 05:00 98.0 81 17 122/76 (91) 95 98.0 02/12/25 20:00 Room Air* 0 21 Intake/Output Intake and Output 02/13/25 07:00 Intake Total 610 ml Output Total 400 ml Balance 210 ml Intake Oral 610 ml Output Urine Total 400 ml # Voids 4 # Bowel Movements 1 Medications Current Medications Medications Dose Ordered Sig/Nikko Route Start Time Stop Time Status Last Admin Dose Admin Acetaminophen/ Hydrocodone Bitart 1 tab Q4HP PRN PO 02/09/25 09:30 02/12/25 04:43 1 TAB Ondansetron HCl 4 mg Q4HP PRN IV 02/09/25 09:30 Acetaminophen 650 mg Q6HP PRN PO 02/09/25 09:30 Nitroglycerin 0.4 mg Q5MINP PRN SL 02/09/25 09:30 Morphine Sulfate 2 mg Q30M PRN IV 02/09/25 09:30 Allopurinol 100 mg BID PO 02/09/25 22:00 02/12/25 21:11 100 MG Aspirin 81 mg DAILY PO 02/10/25 10:00 02/12/25 10:01 81 MG Benazepril HCl 10 mg DAILY PO 02/10/25 10:00 02/12/25 10:06 10 MG Buspirone HCl 10 mg TID PO 02/09/25 14:00 02/13/25 06:06 10 MG Tamsulosin HCl 0.4 mg QPM PO 02/09/25 18:00 02/12/25 18:04 0.4 MG Patient Own Medication 600 mg DAILY PO 02/10/25 10:00 Patient Own Medication 1 tab DAILY PO 02/10/25 10:00 Patient Own Medication 1 tab DAILY PO 02/10/25 10:00 02/12/25 14:16 1 TAB Patient Own Medication 28 mg DAILY PO 02/10/25 10:00 02/12/25 14:16 28 MG Metoprolol Succinate 25 mg DAILY PO 02/10/25 10:00 02/12/25 10:06 25 MG Multivitamins/ Minerals 1 tab DAILY PO 02/10/25 10:00 02/12/25 10:01 1 TAB Cholecalciferol 2,000 unit DAILY PO 02/10/25 10:00 02/12/25 10:07 2,000 UNIT Hydralazine HCl 10 mg Q6HP PRN IV 02/09/25 10:30 02/09/25 14:17 10 MG Alendronate Sodium 70 mg Q7D@0700 PO 02/10/25 07:00 02/10/25 06:11 70 MG Laboratory Results Laboratory Tests 02/10/25 05:40 02/11/25 09:09 Urinalysis Test 02/09/25 08:22 Urine Color Colorless (Yellow) Urine Clarity Clear (Clear) Urine pH 7.0 (5.0-9.0) Urine Specific [place] 1.008 (1.001-1.035) Urine Protein Negative (Negative) Urine Ketones Negative (Negative) Urine Blood Negative /uL (Negative) Urine Nitrite Negative (Negative) Urine Bilirubin Negative (Negative) Urine Urobilinogen Normal mg/dL (Negative) Urine Leukocyte Esterase Negative /uL (Negative) Urine RBC 2 /hpf (0 - 3) Urine Microscopic WBC < 1 /HPF (0-3) Urine Squamous Epithelial Cells None seen /hpf (<5) Urine Bacteria None seen /hpf (None Seen) Urine Glucose Normal mg/dL (Normal) Labs and/or images reviewed: Labs reviewed by me, Image(s) reviewed by me Assessment/Plan Assessment/Plan Right maxillary soft tissue injury and moderate right periorbital and preseptal soft tissue swelling and edema status post mechanical fall Hypertensive urgency History of dementia History of gout History of hyperlipidemia History of hypertension Recurrent falls: Social service consult Time spent 50 minutes Advanced care planning time 20 mts at bedside Patient made DNR [facility] director agricultural services working on authorization from the insurance No new complaints Plan discussed with: Patient My Orders Orders - ERIKA CLARK MD Procedure Category Date Status Time * Security Consultant CONS 02/12/25 Transmitted Consult 14:11 Discharge DISCHARGE 02/12/25 Transmitted 14:12 Date of Service: Feb 13, 2025 Billing Provider: ERIKA CLARK MD Common Visit Codes: [id number] INP/OBS CARE(HIGH) ERIKA CLARK MD Feb 13, 2025 10:54
--- NOTE | 2025-02-14 00:08 | DVHPN2 ---
Progress Note - Dictate Date Seen: Feb 13, 2025 Medical Necessity Reason Pt with a Central, PICC or Fol: No Subjective Patient was seen and evaluated in follow up. The patient is complaining of right sided facial pain. Patient is awaiting SNF placement, pending insurance auth. vital signs Vital Sign Date Time Temp Pulse Resp B/P (MAP) Pulse Ox O2 Delivery O2 Flow Rate FiO2 02/13/25 21:00 98.2 67 17 146/83 (104) 95 98.2 02/13/25 08:10 Room Air* 0 21 Total Intake and Output 02/13/25 02/13/25 02/14/25 15:00 23:00 07:00 Intake Total 75 ml Output Total 425 ml Balance -350 ml medications Current Medications Medications Dose Ordered Sig/Nikko Route Start Time Stop Time Status Last Admin Dose Admin Acetaminophen/ Hydrocodone Bitart 1 tab Q4HP PRN PO 02/09/25 09:30 02/12/25 04:43 1 TAB Ondansetron HCl 4 mg Q4HP PRN IV 02/09/25 09:30 Acetaminophen 650 mg Q6HP PRN PO 02/09/25 09:30 Nitroglycerin 0.4 mg Q5MINP PRN SL 02/09/25 09:30 Morphine Sulfate 2 mg Q30M PRN IV 02/09/25 09:30 Allopurinol 100 mg BID PO 02/09/25 22:00 02/13/25 21:15 100 MG Aspirin 81 mg DAILY PO 02/10/25 10:00 02/13/25 10:59 81 MG Benazepril HCl 10 mg DAILY PO 02/10/25 10:00 02/13/25 11:01 10 MG Buspirone HCl 10 mg TID PO 02/09/25 14:00 02/13/25 21:17 10 MG Tamsulosin HCl 0.4 mg QPM PO 02/09/25 18:00 02/13/25 18:19 0.4 MG Patient Own Medication 600 mg DAILY PO 02/10/25 10:00 Patient Own Medication 1 tab DAILY PO 02/10/25 10:00 Patient Own Medication 1 tab DAILY PO 02/10/25 10:00 02/13/25 11:02 1 TAB Patient Own Medication 28 mg DAILY PO 02/10/25 10:00 02/13/25 11:02 28 MG Metoprolol Succinate 25 mg DAILY PO 02/10/25 10:00 02/13/25 11:00 25 MG Multivitamins/ Minerals 1 tab DAILY PO 02/10/25 10:00 02/13/25 11:20 1 TAB Cholecalciferol 2,000 unit DAILY PO 02/10/25 10:00 02/13/25 11:01 2,000 UNIT Hydralazine HCl 10 mg Q6HP PRN IV 02/09/25 10:30 02/13/25 15:28 10 MG Alendronate Sodium 70 mg Q7D@0700 PO 02/10/25 07:00 02/10/25 06:11 70 MG objective GENERAL: Alert and oriented x 3. No acute distress. EYES: PERRL, EOMI. Anicteric. HENT: Moist mucous membranes. LUNGS: Clear to auscultation bilaterally. CARDIOVASCULAR: Irregular rate and rhythm. ABDOMEN: Soft, nontender and nondistended. EXTREMITIES: No edema. NEUROLOGIC: No focal neurological deficits. SKIN: Warm, dry. laboratory and microbiology Laboratory Tests 02/11/25 09:09 02/10/25 05:40 Test 02/11/25 09:09 Range/Units Serum Glucose 109 H 74-106 mg/dL Problem List S/p mechanical fall with facial injury. Paroxysmal AFib, ?new onset. NSTEMI - likely non cardiac, likely due to above. Hypertension. DNR status. Assessment/Plan Continued all current supportive medical care. Morphine and [place] for pain management. Aspirin, Metoprolol. IV Hydralazine for SBP >150. Nitro SL. Additional plan as per the hospital course. Dietary Evaluation Review Recommendations by RD: Protein Supplementation Comments: 1) Initiate Ensure High Protein bid 2) Encourage optimal PO intake 3) Follow-up with cardiology and neurology 4) Continue to monitor I&O, labs, and skin integrity Expected Outcomes/Goals: 1) appetite and labs to improve 2) wounds to improve 3) f/u in 3-5 days Plan discussed with: Patient LEMUEL ISLAS MD Feb 14, 2025 00:08
[2025-02-14 01:00] VITALS: BP 139/77; PULSE 66; RESP 17; TEMP 98; O2SAT 95
[2025-02-14 05:00] VITALS: BP 133/71; PULSE 74; RESP 17; TEMP 97.4; O2SAT 96
[2025-02-14 08:00] VITALS: PULSE 101
[2025-02-14 09:09] VITALS: BP 137/91; PULSE 94; RESP 16; TEMP 98.2; O2SAT 94
--- NOTE | 2025-02-14 11:32 | DVHPN2 ---
Reviewed: Care Plan, H&P, Labs, Medications, Previous Orders, Radiology Changes from previous H/P or p: No Changes Skin: Bruising, Other (Right-sided laceration lateral to the eye) Objective Vitals Vital Signs Date Time Temp Pulse Resp B/P (MAP) Pulse Ox O2 Delivery O2 Flow Rate FiO2 02/14/25 09:09 98.2 94 16 137/91 (106) 94 98.2 02/13/25 20:00 Room Air* 0 21 Intake/Output Intake and Output 02/14/25 07:00 Intake Total 295 ml Output Total 825 ml Balance -530 ml Intake Oral 295 ml Output Urine Total 825 ml # Voids 1 Medications Current Medications Medications Dose Ordered Sig/Nikko Route Start Time Stop Time Status Last Admin Dose Admin Acetaminophen/ Hydrocodone Bitart 1 tab Q4HP PRN PO 02/09/25 09:30 02/12/25 04:43 1 TAB Ondansetron HCl 4 mg Q4HP PRN IV 02/09/25 09:30 Acetaminophen 650 mg Q6HP PRN PO 02/09/25 09:30 Nitroglycerin 0.4 mg Q5MINP PRN SL 02/09/25 09:30 Morphine Sulfate 2 mg Q30M PRN IV 02/09/25 09:30 Allopurinol 100 mg BID PO 02/09/25 22:00 02/13/25 21:15 100 MG Aspirin 81 mg DAILY PO 02/10/25 10:00 02/13/25 10:59 81 MG Benazepril HCl 10 mg DAILY PO 02/10/25 10:00 02/13/25 11:01 10 MG Buspirone HCl 10 mg TID PO 02/09/25 14:00 02/14/25 05:30 10 MG Tamsulosin HCl 0.4 mg QPM PO 02/09/25 18:00 02/13/25 18:19 0.4 MG Patient Own Medication 600 mg DAILY PO 02/10/25 10:00 Patient Own Medication 1 tab DAILY PO 02/10/25 10:00 Patient Own Medication 1 tab DAILY PO 02/10/25 10:00 02/13/25 11:02 1 TAB Patient Own Medication 28 mg DAILY PO 02/10/25 10:00 02/13/25 11:02 28 MG Metoprolol Succinate 25 mg DAILY PO 02/10/25 10:00 02/13/25 11:00 25 MG Multivitamins/ Minerals 1 tab DAILY PO 02/10/25 10:00 02/13/25 11:20 1 TAB Cholecalciferol 2,000 unit DAILY PO 02/10/25 10:00 02/13/25 11:01 2,000 UNIT Hydralazine HCl 10 mg Q6HP PRN IV 02/09/25 10:30 02/13/25 15:28 10 MG Alendronate Sodium 70 mg Q7D@0700 PO 02/10/25 07:00 02/10/25 06:11 70 MG Laboratory Results Laboratory Tests 02/10/25 05:40 02/11/25 09:09 Urinalysis Test 02/09/25 08:22 Urine Color Colorless (Yellow) Urine Clarity Clear (Clear) Urine pH 7.0 (5.0-9.0) Urine Specific [place] 1.008 (1.001-1.035) Urine Protein Negative (Negative) Urine Ketones Negative (Negative) Urine Blood Negative /uL (Negative) Urine Nitrite Negative (Negative) Urine Bilirubin Negative (Negative) Urine Urobilinogen Normal mg/dL (Negative) Urine Leukocyte Esterase Negative /uL (Negative) Urine RBC 2 /hpf (0 - 3) Urine Microscopic WBC < 1 /HPF (0-3) Urine Squamous Epithelial Cells None seen /hpf (<5) Urine Bacteria None seen /hpf (None Seen) Urine Glucose Normal mg/dL (Normal) Labs and/or images reviewed: Labs reviewed by me, Image(s) reviewed by me Assessment/Plan Assessment/Plan Right maxillary soft tissue injury and moderate right periorbital and preseptal soft tissue swelling and edema status post mechanical fall Hypertensive urgency History of dementia History of gout History of hyperlipidemia History of hypertension Recurrent falls: Social service consult Time spent 50 minutes Advanced care planning time 20 mts at bedside Patient made DNR Patient was discharged to longterm facility on 02/12/2025 real estate services administrator working on authorization from the insurance No new complaints Plan discussed with: Patient Date of Service: Feb 14, 2025 Billing Provider: ERIKA CLARK MD Common Visit Codes: [id number] INP/OBS CARE(HIGH) ERIKA CLARK MD Feb 14, 2025 11:32
[2025-02-14 13:00] VITALS: BP 138/90; PULSE 89; RESP 17; TEMP 98; O2SAT 94
--- NOTE | 2025-02-14 15:32 | DVH ---
CT HEAD WITHOUT CONTRAST Indication: confusion EXAM DATE: 02/14/2025 02:52 PM COMPARISON: CT HEAD WITHOUT CONTRAST on DOS: 02/09/25, CT HEAD WITHOUT CONTRAST on DOS: 10/17/24, HEAD WITHOUT CONTRAST on DOS: 02/27/22 TECHNIQUE: CT of the head without intravenous contrast. RADIATION DOSE: CTDIvol: 61.72 mGy, DLP: 1214 mGy*cm FINDINGS: There is no intracranial hemorrhage. There is no extra-axial fluid, mass, mass effect or midline shif t. The ventricles are midline and normal in size. Basilar cisterns are patent. Moderate global cerebr al volume loss. Moderate periventricular and subcortical white matter chronic microvascular ischemic changes. Mastoids well pneumatized. Bilateral maxillary sinus mucosal thickening and retention cyst / polyps. Postsurgical changes of the bilateral orbits. IMPRESSION: No intracranial hemorrhage or mass effect. Moderate chronic microvascular ischemic changes. Moderate global cerebral volume loss. Paranasal sinus disease.
[2025-02-14 17:03] VITALS: BP 143/88; PULSE 63; RESP 17; TEMP 98.2; O2SAT 96
[2025-02-14 20:27] LABS: Urine Protein, UAD TRACE (Negative)
--- NOTE | 2025-02-14 21:27 | DVHPN2 ---
Progress Note - Dictate Date Seen: Feb 14, 2025 Medical Necessity Reason Pt with a Central, PICC or Fol: No Subjective Patient was seen and evaluated in follow up. Patient has no new complaints at this time. Patient denies any cardiac symptoms. Patient is cardiac stable for discharge. vital signs Vital Sign Date Time Temp Pulse Resp B/P (MAP) Pulse Ox O2 Delivery O2 Flow Rate FiO2 02/14/25 13:00 98.0 89 17 138/90 (106) 94 98.0 02/13/25 20:00 Room Air* 0 21 Total Intake and Output 02/13/25 02/13/25 02/14/25 15:00 23:00 07:00 Intake Total 75 ml 220 ml Output Total 425 ml 400 ml Balance -350 ml -180 ml medications Current Medications Medications Dose Ordered Sig/Nikko Route Start Time Stop Time Status Last Admin Dose Admin Acetaminophen/ Hydrocodone Bitart 1 tab Q4HP PRN PO 02/09/25 09:30 02/12/25 04:43 1 TAB Ondansetron HCl 4 mg Q4HP PRN IV 02/09/25 09:30 Acetaminophen 650 mg Q6HP PRN PO 02/09/25 09:30 Nitroglycerin 0.4 mg Q5MINP PRN SL 02/09/25 09:30 Morphine Sulfate 2 mg Q30M PRN IV 02/09/25 09:30 Allopurinol 100 mg BID PO 02/09/25 22:00 02/13/25 21:15 100 MG Aspirin 81 mg DAILY PO 02/10/25 10:00 02/13/25 10:59 81 MG Benazepril HCl 10 mg DAILY PO 02/10/25 10:00 02/13/25 11:01 10 MG Buspirone HCl 10 mg TID PO 02/09/25 14:00 02/14/25 05:30 10 MG Tamsulosin HCl 0.4 mg QPM PO 02/09/25 18:00 02/13/25 18:19 0.4 MG Patient Own Medication 600 mg DAILY PO 02/10/25 10:00 Patient Own Medication 1 tab DAILY PO 02/10/25 10:00 Patient Own Medication 1 tab DAILY PO 02/10/25 10:00 02/13/25 11:02 1 TAB Patient Own Medication 28 mg DAILY PO 02/10/25 10:00 02/13/25 11:02 28 MG Metoprolol Succinate 25 mg DAILY PO 02/10/25 10:00 02/13/25 11:00 25 MG Multivitamins/ Minerals 1 tab DAILY PO 02/10/25 10:00 02/13/25 11:20 1 TAB Cholecalciferol 2,000 unit DAILY PO 02/10/25 10:00 02/13/25 11:01 2,000 UNIT Hydralazine HCl 10 mg Q6HP PRN IV 02/09/25 10:30 02/13/25 15:28 10 MG Alendronate Sodium 70 mg Q7D@0700 PO 02/10/25 07:00 02/10/25 06:11 70 MG objective GENERAL: Alert and oriented x 3. No acute distress. EYES: PERRL, EOMI. Anicteric. HENT: Moist mucous membranes. LUNGS: Clear to auscultation bilaterally. CARDIOVASCULAR: Irregular rate and rhythm. ABDOMEN: Soft, nontender and nondistended. EXTREMITIES: No edema. NEUROLOGIC: No focal neurological deficits. SKIN: Warm, dry. laboratory and microbiology Laboratory Tests 02/11/25 09:09 02/10/25 05:40 Test 02/11/25 09:09 Range/Units Serum Glucose 109 H 74-106 mg/dL Problem List S/p mechanical fall with facial injury. Paroxysmal AFib, ?new onset. NSTEMI - likely non cardiac, likely due to above. Hypertension. DNR status. Assessment/Plan Continued all current supportive medical care. Nitro SL. Tylenol for pain management. Additional plan as per the hospital course. Dietary Evaluation Review Recommendations by RD: Protein Supplementation Comments: 1) Initiate Ensure High Protein bid 2) Encourage optimal PO intake 3) Follow-up with cardiology and neurology 4) Continue to monitor I&O, labs, and skin integrity Expected Outcomes/Goals: 1) appetite and labs to improve 2) wounds to improve 3) f/u in 3-5 days Plan discussed with: Patient LEMUEL ISLAS MD Feb 14, 2025 14:22
== END 2025-02-14 18:54 | DRG 913 ==
LOC: EDBD 04:29 → ER 04:29 → OVERFLOW 09:18 → EAST 13:15
PROVIDERS: ADMIT Family Medicine; ATTEND Family Medicine
PROC: 0HQ1XZZ Repair Face Skin, External Approach (ICD-10-PCS; principal; 2025-02-09)
DX: S09.93XA Unspecified injury of face, initial encounter (principal); I21.A1 Myocardial infarction type 2; S09.90XA Unspecified injury of head, initial encounter; I16.0 Hypertensive urgency; I48.0 Paroxysmal atrial fibrillation; S00.11XA Contusion of right eyelid and periocular area, initial encounter; E78.5 Hyperlipidemia, unspecified; F03.90 Unspecified dementia, unspecified severity, without behavioral disturbance, psychotic disturbance, mood disturbance, and anxiety; I10 Essential (primary) hypertension; M10.9 Gout, unspecified; Z20.822 Contact with and (suspected) exposure to COVID-19; Z66 Do not resuscitate; W01.0XXA Fall on same level from slipping, tripping and stumbling without subsequent striking against object, initial encounter; Z82.5 Family history of asthma and other chronic lower respiratory diseases; Z79.82 Long term (current) use of aspirin; Z79.899 Other long term (current) drug therapy; Y93.89 Activity, other specified; Y99.8 Other external cause status; Y92.009 Unspecified place in unspecified non-institutional (private) residence as the place of occurrence of the external cause
CPT/HCPCS: 36415; 70450; 70486; 72125; 73560; 80053; 80061; 81001; 83735; 84154; 84443; 84484; 85025; 87426; 92610; 93005; 93970; 96374; 97110; 97116; 97163; 97530; G0378